=== PATIENT | female | born 1995 | race Caucasian/White ===

== ENCOUNTER 2020-01-30 09:46 | Emergency (ER) | payer OTHER, SELFPAY ==
--- NOTE | ~2020-01-30 | XR_ITS ---
EXAMINATION: XR forearm RT 2V DATE: 01/30/2020 10:40 INDICATION: Right forearm injury and pain. TECHNIQUE: 2 views of right forearm were obtained. COMPARISON: None. FINDINGS: Bone alignment is normal. No fracture. Joint spaces are well maintained. There is no elbow joint effusion. IMPRESSION: 1. Normal right forearm. Reviewed, dictated and finalized at location A. E PROTECTION SPECIALIST IMPRESSION: 1. Normal right forearm.
--- NOTE | ~2020-01-30 | XR_ITS ---
EXAMINATION: XR elbow RT min 3V DATE: 01/30/2020 10:40 INDICATION: Right elbow pain. Fall. TECHNIQUE: 4 views of right elbow were obtained. COMPARISON: None. FINDINGS: Bone alignment is normal. No fracture. Joint spaces are well maintained. There is no elbow joint effusion. IMPRESSION: 1. Normal right elbow. Reviewed, dictated and finalized at location A. ERY CARRIER IMPRESSION: 1. Normal right elbow.
--- NOTE | ~2020-01-30 | XR_ITS ---
EXAMINATION: XR shoulder RT min 2V DATE: 01/30/2020 10:40 INDICATION: Right shoulder pain. Fall. TECHNIQUE: 4 views of right shoulder were obtained. COMPARISON: None. FINDINGS: Bone alignment is normal. No fracture. Joint spaces are well maintained. A calcified right lung nodule is consistent with old granulomatous disease. IMPRESSION: 1. Normal right shoulder. Reviewed, dictated and finalized at location A. THERAPIST IMPRESSION: 1. Normal right shoulder.
[2020-01-30 09:55] VITALS: BP 113/74; PULSE 70; RESP 16; TEMP 36.3; O2SAT 100
--- NOTE | 2020-01-30 11:11 | ED.UPPEXIN ---
HPI - Extremity Injury (Upper) General Chief Complaint: Extremity Injury, Upper Stated Complaint: right arm injury Time Seen by Provider: 01/30/20 09:52 Source: patient Mode of arrival: ambulatory Limitations: no limitations History of Present Illness HPI narrative: Patient presents with chief complaint of pain to her right shoulder right elbow and right forearm that began after slipping on some water last night and landing on the forearm. Patient states she iced the area but today noticed that it is more so painful and swollen. Patient states that she does still have range of motion of the extremity but it is uncomfortable. Patient denies prior fractures she does report radiating pain from her forearm to her elbow and from her shoulder downward as well as intermittent tingling sensations. Patient denies any other injuries or concerns. Related Data Home Medications Medication Instructions Recorded Confirmed No Home Medications 01/30/20 01/30/20 Allergies Allergy/AdvReac Type Severity Reaction Status Date / Time Sulfa (Sulfonamide Allergy Mild Unknown Verified 01/30/20 10:15 Antibiotics) amoxicillin Allergy Unknown Unknown Verified 01/30/20 10:15 chlorphentermine Allergy Unknown Unknown Verified 01/30/20 10:15 dextromethorphan Allergy Unknown Unknown Verified 01/30/20 10:15 Penicillins Allergy Unknown RASH Verified 04/11/18 13:37 phenylephrine Allergy Unknown Unknown Verified 01/30/20 10:15 pseudoephedrine Allergy Unknown Unknown Verified 01/30/20 10:15 DIAL SOAP Allergy Mild RASH Uncoded 09/07/16 12:36 PUREX Allergy Mild RASH Uncoded 09/07/16 12:36 Review of Systems Review of Systems: Narrative: CONSTITUTIONAL: Denies fever, chills, or sweats. EYES: Denies visual changes, redness, or discharge. ENT: Denies rhinorrhea, congestion, sore throat, or otalgia. CARDIOVASCULAR: Denies chest pain, palpitations, or edema. RESPIRATORY: Denies cough or dyspnea. GASTROINTESTINAL: Denies abdominal pain, nausea, vomiting, or diarrhea. GENITOURINARY: Denies dysuria or hematuria. SKIN: Denies rash or itching. MUSCULOSKELETAL: Reports right arm injury NEUROLOGIC: Denies headache, numbness, dizziness, or weakness. PSYCHIATRIC: Denies anxiety or depression. [facility] Family History Family History (Updated 10/28/09 @ 12:10 by DOCTOR UNKNOWN) Other Diabetes mellitus Family history of coronary artery disease Hypertension Social History Social History Smoking status: Never smoker Alcohol intake: never Exam Narrative: Exam Narrative: GENERAL: Well-appearing, well-nourished, and in no acute distress. HEAD: Normocephalic, atraumatic. EYES: PERRLA and EOMI. NECK: Supple. No adenopathy or masses. Range of motion intact no pain CHEST: No respiratory distress. No tachypnea EXTREMITIES: Normal range of motion to right extremity. Tenderness to posterior aspect of right shoulder.no outward sign of deformity or ecchymosis appreciated. Slight tenderness with palpation distal to the elbow into the forearm with ecchymosis and swelling. No tenderness to palpation of right wrist or hand. SKIN: Warm, dry, no rash. NEURO: No focal deficits. Alert and oriented x3. PSYCH: Normal mood and affect. Course Vital Signs Vital signs: Vital Signs Temperature 97.4 F L 01/30/20 09:55 Pulse Rate 70 01/30/20 09:55 Respiratory Rate 16 01/30/20 09:55 Blood Pressure 113/74 01/30/20 09:55 Pulse Oximetry 100 01/30/20 09:55 Temperature 97.4 F L 01/30/20 09:55 Pulse Rate 70 01/30/20 09:55 Respiratory Rate 16 01/30/20 09:55 Blood Pressure 113/74 01/30/20 09:55 Pulse Oximetry 100 01/30/20 09:55 MDM - Extremity Injury (Upper) MDM Narrative Medical decision making narrative: Patient's x-rays are negative. Patient instructed to RICE and follow-up with primary care if symptoms persist. Patient instructed to take Tylenol and ibuprofen if she can tolerate them. Patient given a work note to avoid using right a
[2020-01-30 11:26] VITALS: RESP 16
== END 2020-01-30 11:27 | disposition home or self-care (01) ==
PROVIDERS: Emergency Provider Emergency Medicine; PCP Family Medicine
DX: S43.401A Unspecified sprain of right shoulder joint, initial encounter (principal); S50.11XA Contusion of right forearm, initial encounter; W01.0XXA Fall on same level from slipping, tripping and stumbling without subsequent striking against object, initial encounter
CPT/HCPCS: 73030; 73080; 73090; 99284; A4565

== ENCOUNTER 2022-04-24 15:30 | Outpatient (CLI) | payer OTHER, SELFPAY ==
--- NOTE | ~2022-04-24 | US_ITS ---
EXAMINATION: US OB <=14 wk fetus w TV DATE: 04/24/2022 16:01 INDICATION: Irregular periods with uncertain dating of during first trimester. TECHNIQUE: Real-time pelvic ultrasound utilizing both a transvaginal and transabdominal probe was pe rformed. The interpreting radiologist was not present for the study. COMPARISON: None. FINDINGS: The uterus measures 10.1 x 5.2 x 4.1 cm. There is a 4 mm anechoic fluid collection within the endome trial complex at the uterine fundus without evident yolk sac, pole or definitive double decidua sign which remains equivocal for gestational sac versus pseudogestational sac. Presuming a gestation al sac, this would correlate with an estimated gestational age of 5 weeks and 1 days. The right ovary measures 4.9 x 3.3 x 2.8 cm. 2.8 cm anechoic cyst in the right ovary. The left ovary measures 3.2 x 2.6 x 2.0 cm. Vascular flow with arterial flow on color Doppler identified at both ova michele. No other abnormal adnexal masses. There is a minimal amount of anechoic likely physiologic free fluid in the pelvis. IMPRESSION: 1. 4 mm anechoic fluid collection without evident yolk sac or pole located in the endometrial c omplex at the uterine fundus which remains indeterminate for gestational sac versus pseudogestationa l sac. Differential would include early, failed or ectopic . Correlate with serial beta-hCG levels and could consider short interval repeat pelvic ultrasound. 2. Presuming a gestational sac, the estimated gestational age by ultrasound based upon mean sac diame ter would be 5 weeks 1 day(s) +/- 3 day(s) with ultrasound estimated date of delivery (DB) of 2022. Reviewed, dictated and finalized at location A. TAL PERFORMANCE ANALYST IMPRESSION: 1. 4 mm anechoic fluid collection without evident yolk sac or pole locate d in the endometrial complex at the uterine fundus which remains indeterminate for gestational sac versus pseudogestational sac. Differential would include e kailyn, failed or ectopic . Correlate with serial beta-hCG levels and co uld consider short interval repeat pelvic ultrasound. 2. Presuming a gestational sac, the estimated gestational age by ultrasound bas ed upon mean sac diameter would be 5 weeks 1 day(s) +/- 3 day(s) with ultrasoun d estimated date of delivery (DB) of 12/24/2022.
== END 2022-04-24 15:31 | disposition home or self-care (01) ==
PROVIDERS: PCP Family Medicine; Visit Provider Obstetrics & Gynecology Gynecology
DX: O36.80X0 Pregnancy with inconclusive fetal viability, not applicable or unspecified (principal); Z3A.00 Weeks of gestation of pregnancy not specified
CPT/HCPCS: 76801; 76817

== ENCOUNTER 2022-04-27 15:45 | Outpatient (CLI) | payer OTHER, SELFPAY | END 2022-04-27 15:46 | disposition home or self-care (01) | LOC: ANHLAB 15:45 | PROVIDERS: PCP Family Medicine; Visit Provider Obstetrics & Gynecology Gynecology | DX: O28.3 Abnormal ultrasonic finding on antenatal screening of mother (principal); Z3A.00 Weeks of gestation of pregnancy not specified | CPT/HCPCS: 36415; 84702 ==

== ENCOUNTER 2022-04-29 15:37 | Outpatient (CLI) | payer OTHER, SELFPAY | END 2022-04-29 15:38 | disposition home or self-care (01) | PROVIDERS: PCP Family Medicine; Visit Provider Obstetrics & Gynecology Gynecology | DX: O28.3 Abnormal ultrasonic finding on antenatal screening of mother (principal); Z3A.00 Weeks of gestation of pregnancy not specified | CPT/HCPCS: 36415; 84702 ==

== ENCOUNTER 2022-05-04 17:05 | Outpatient (CLI) | payer OTHER, SELFPAY ==
--- NOTE | ~2022-05-04 | US_ITS ---
EXAMINATION: US OB <=14 wk fetus w TV DATE: 05/04/2022 18:09 INDICATION: Uncertain dates. TECHNIQUE: Real-time transabdominal and transvaginal pelvic ultrasound was performed. COMPARISON: Ultrasound 04/24/2022 FINDINGS: TRANSABDOMINAL ULTRASOUND: The uterus measures 10.3 x 5.4 x 5.7 cm. TRANSVAGINAL ULTRASOUND: There is an intrauterine gestational sac. A yolk sac is identified. The fet al crown rump length measures 0.4 cm, which correlates with an estimated gestational age of 6 weeks a nd 1 day(s) (+/-) 4 day(s). heart motion is identified measuring 154 beats per minute (bpm) by M-mode Doppler. There is a small subchorionic hematoma. The right ovary measures 5.3 x 2.4 x 3.5 cm. The left ovary measures 4.0 x 2.2 x 3.2 cm. There is no free fluid in the pelvis. IMPRESSION: 1. Single living intrauterine gestation with estimated date of delivery of 12/27/2022. 2. Small subchorionic hematoma. Reviewed, dictated and finalized at location A. INUOUS WAVE OPERATOR IMPRESSION: 1. Single living intrauterine gestation with estimated date of delivery of . 2. Small subchorionic hematoma.
== END 2022-05-04 17:06 | disposition home or self-care (01) ==
LOC: ANHIMG 17:07
PROVIDERS: PCP Family Medicine; Visit Provider Obstetrics & Gynecology Gynecology
DX: Z36.87 Encounter for antenatal screening for uncertain dates (principal)
CPT/HCPCS: 76801; 76817

== ENCOUNTER 2022-06-01 12:41 | Outpatient (CLI) | payer OTHER, SELFPAY ==
--- NOTE | ~2022-06-01 | US_ITS ---
Pelvic ultrasound. Clinical History: First trimester , subchorionic hemorrhage COMPARISON: 05/04/2022 Technique: Realtime transabdominal and transvaginal scanning of the pelvis was performed. Color flow Doppler and Doppler spectral analysis were performed. Findings: The uterus is anteverted, and contains an intrauterine gestation. Aristes-rump length of 4.2 cm corresponds to an estimated gestational age of 11 weeks 1 day. heart rate is 163 bpm. Small subchorionic hemorrhage measures 1.3 x 1.8 x 0.5 cm. The right ovary measures 4.9 x 2.3 cm. No significant right ovarian or adnexal mass is seen. The left ovary measures 3.4 x 2.2 x 2.8 cm. No significant left ovarian or adnexal mass is seen. There is no evidence of free fluid in the cul de sac. Impression: Live intrauterine gestation with estimated gestational age of 11 weeks 1 day. heart rate is 163 bpm. Small subchorionic hemorrhage, as detailed above. Reviewed, dictated and finalized at location . Impression: Live intrauterine gestation with estimated gestational age of 11 weeks 1 day. F etal heart rate is 163 bpm. Small subchorionic hemorrhage, as detailed above.
== END 2022-06-01 12:42 | disposition home or self-care (01) ==
PROVIDERS: PCP Family Medicine; Visit Provider Obstetrics & Gynecology Gynecology
DX: O36.8910 Maternal care for other specified fetal problems, first trimester, not applicable or unspecified (principal); Z3A.11 11 weeks gestation of pregnancy
CPT/HCPCS: 76801

== ENCOUNTER 2022-06-16 13:27 | Outpatient (CLI) | payer OTHER, SELFPAY ==
[2022-06-16 14:05] LABS: Basophils Percent Auto 0.3 % (0.2-1.2); Eosinophils Absolute Auto 0.5 K/mm3 (0-0.3); Eosinophils Percent Auto 5.2 % (0-4.4); Hemoglobin 13.7 g/dL (12.0-15.0); Immature Granulocyte Absolute 0.04 K/mm3 (0.00-0.031); Immature Granulocyte Percent A 0.4 % (0-0.5); Lymphocytes Absolute Auto 2.27 K/mm3 (0.9-3.2); Lymphocytes Percent Auto 21.7 % (18.3-44.2); Mean Corpuscular HGB Conc 33.4 g/dl (32-36); Mean Corpuscular Hemoglobin 29.7 pg (26-34); Mean Corpuscular Volume 88.7 fl (80-100); Monocytes Absolute Auto 0.5 K/mm3 (0.1-0.6); Monocytes Percent Auto 4.8 % (2.6-8.5); Neutrophils Absolute Auto 7.1 K/mm3 (1.3-6.7); Neutrophils Percent Auto 67.6 % (45.5-73.1); Platelet Count Result 245 k/mm3 (150-375); Red Blood Count 4.62 M/mm3 (4.2-5.4); Red Cell Distribution Width 13.4 % (11.5-14.5); White Blood Count 10.5 K/mm3 (4.5-10.0)
[2022-06-16 14:44] LABS: Hemoglobin A1C 4.8 % (<5.7)
[2022-06-16 15:04] LABS: HIV 1/2 Ab P24 Ag Result Negative (Negative)
[2022-06-16 15:23] LABS: Vitamin D 25 Hydroxy 36.2 ng/mL
[2022-06-16 15:55] LABS: Hepatitis C Virus Antibody Negative (Negative)
[2022-06-16 16:01] LABS: Hepatitis B Surface Antigen Negative (Negative); Rubella IgG Antibody 55.6 IU/ML
[2022-06-17 08:14] LABS: Rapid Plasma Reagin Non-Reactive (NonReactive)
== END 2022-06-16 13:28 | disposition home or self-care (01) ==
PROVIDERS: Advanced Practice Midwife; PCP Family Medicine; Visit Provider Obstetrics & Gynecology Gynecology
DX: Z36.9 Encounter for antenatal screening, unspecified (principal); Z3A.00 Weeks of gestation of pregnancy not specified
CPT/HCPCS: 36415; 82306; 82728; 83036; 85025; 86592; 86703; 86762; 86803; 86850; 86900; 86901; 87340; G0432

== ENCOUNTER 2022-06-29 10:03 | Outpatient (CLI) | payer OTHER, SELFPAY ==
--- NOTE | ~2022-06-29 | US_ITS ---
EXAMINATION: US OB follow up DATE: 06/29/2022 10:41 INDICATION: Subchorionic hematoma follow-up TECHNIQUE: Real-time transabdominal obstetric ultrasound. FINDINGS: Ultrasound dated 06/01/2022 There is a single living fetus in variable presentation. The placenta is anterior without placenta p revia. cardiac activity and movement is noted with a heart rate of 146 beats per minute. T he amniotic fluid volume is subjectively normal. There is a persistent subchorionic hematoma measurin g 2.1 x 0.4 x 0.9 cm The following biometric data were obtained: BPD: 28mm corresponds to gestational age 14 weeks 6 days. Head circumference: 109mm corresponds to gestational age 15 weeks 1 days. Abdominal circumference: 99mm corresponds to gestational age 16 weeks 0 days. Femur length: 70mm corresponds to gestational age 15 weeks 1 days. Estimated weight: 126grams +/- 19grams, 92.9%.] IMPRESSION: 1. Single living intrauterine in variable presentation with an estimated gestational age o f 14 weeks 6 days by inititial ultrasound. EDC by initial ultrasound is 12/22/2022. Appropriate inter malick growth. 2. Normal placenta. 3: Persistent subchorionic hematoma measuring 2.1 x 0.4 x 0.9 cm. Reviewed, dictated and finalized at location A. IMPRESSION: 1. Single living intrauterine in variable presentation with an estim ated gestational age of 14 weeks 6 days by inititial ultrasound. EDC by initial ultrasound is 12/22/2022. Appropriate interval growth. 2. Normal placenta. 3: Persistent subchorionic hematoma measuring 2.1 x 0.4 x 0.9 cm.
== END 2022-06-29 10:04 | disposition home or self-care (01) ==
PROVIDERS: PCP Family Medicine; Visit Provider Obstetrics & Gynecology Gynecology
DX: O36.8910 Maternal care for other specified fetal problems, first trimester, not applicable or unspecified (principal); Z3A.14 14 weeks gestation of pregnancy
CPT/HCPCS: 76816

== ENCOUNTER 2022-07-31 09:31 | Outpatient (CLI) | payer OTHER, SELFPAY ==
--- NOTE | ~2022-07-31 | US_ITS ---
EXAMINATION: US OB /maternal detail DATE: 07/31/2022 10:46 INDICATION: survey TECHNIQUE: Multiple obstetric sonographic images performed. FINDINGS: Comparison to multiple prior studies sequentially, with oldest reviewed study dated 023. There is a single living fetus in breech presentation. There is a hypoechoic structure along the aurelio in of the placenta measuring 3.2 x 1.6 x 0.9 cm, consistent with small subchorionic hemorrhage. The p lacenta is anterior without placenta previa. Placental margin to the cervix 6.4 cm. Cervical length i s 5.2 cm. Amniotic fluid volume is subjectively normal. cardiac activity and movement is noted with a heart rate of 143 beats per minute. The following anatomy was identified as normal: 4 chamber heart 3 vessel cord cord insertion kidneys urinary bladder stomach spine diaphragm ventricles cisterna magna cerebellum The following biometric data were obtained: BPD: 40mm corresponds to gestational age 18 weeks 1 days. Head circumference: 157 mm corresponds to gestational age 18 weeks 4 days. Abdominal circumference: 143 mm corresponds to gestational age 19 weeks 5 days. Femur length: 30 mm corresponds to gestational age 19 weeks 1 days. Head circumference to abdominal circumference ratio: 1.1 (normal range for expected gestational age i s 1.09-1.26). Estimated weight: 284 grams +/- 43 grams using Hadlock method 53.7%. IMPRESSION: 1: Single living intrauterine with an estimated gestational age of 18weeks 5days by initial ultrasound measurements, with an EDC of 12/27/2022 in breech presentation. 2. Normal survey. 3: Small subchorionic hemorrhage measuring 3.2 x 1.6 x 0.9 cm. Reviewed, dictated and finalized at location B. IMPRESSION: 1: Single living intrauterine with an estimated gestational age of 18 weeks 5days by initial ultrasound measurements, with an EDC of 12/27/2022 in br eech presentation. 2. Normal survey. 3: Small subchorionic hemorrhage measuring 3.2 x 1.6 x 0.9 cm.
== END 2022-07-31 09:32 | disposition home or self-care (01) ==
PROVIDERS: PCP Family Medicine; Visit Provider Obstetrics & Gynecology Gynecology
DX: O36.8910 Maternal care for other specified fetal problems, first trimester, not applicable or unspecified (principal); Z3A.18 18 weeks gestation of pregnancy
CPT/HCPCS: 76805

== ENCOUNTER 2022-08-27 16:20 | Outpatient (CLI) | payer OTHER, SELFPAY ==
--- NOTE | ~2022-08-27 | US_ITS ---
EXAMINATION: US OB follow up DATE: 08/27/2022 16:57 INDICATION: Subchorionic hematoma follow-up during second trimester TECHNIQUE: Real-time ultrasound of the pelvis was performed. The interpreting radiologist was not pre sent for the study. COMPARISON: 07/31/2022 FINDINGS: There is a single living fetus in breech presentation. The previously described subchorioni c hematoma is no longer identified. The placenta is anterior. cardiac activity and moveme nt are noted. heart rate is 142 beats per minute (bpm). The amniotic fluid index is subjectivel y normal. The following biometric data were obtained: Biparietal diameter (BPD): 5.3 cm; head circumference (HC): 20.2 cm; abdominal circumference (AC): 18 .9 cm; femur length (FL): 3.9 cm. These measurements are concordant. Estimated weight is 563 g +/- 84 g, which correlates with the 48th percentile when 12/24/2022 i s used as estimated date of delivery. As single measurements, these parameters are each equal to the following estimated gestational ages w ith ranges of +/- 2 standard deviations: BPD: 22 weeks 1 days +/- 1 weeks 5 days. HC: 22 weeks 3 days +/- 1 weeks 3 days. AC: 23 weeks 5 days +/- 2 weeks 0 days. FL: 22 weeks 5 days +/- 1 weeks 6 days. estimated gestational age based solely on measurements from this exam is 22 weeks 5 days +/- 1 weeks 4 days. IMPRESSION: 1. Single living fetus in breech presentation. 2. Estimated weight is 563 g +/- 84 g, which correlates with the 48th percentile when 3 is used as estimated date of delivery. 3. Resolved subchorionic hematoma. Reviewed, dictated and finalized at location A. IMPRESSION: 1. Single living fetus in breech presentation. 2. Estimated weight is 563 g +/- 84 g, which correlates with the 48th per centile when 12/24/2022 is used as estimated date of delivery. 3. Resolved subchorionic hematoma.
== END 2022-08-27 16:21 | disposition home or self-care (01) ==
LOC: ANHIMG 16:21
PROVIDERS: PCP Family Medicine; Visit Provider Obstetrics & Gynecology Gynecology
DX: O36.8920 Maternal care for other specified fetal problems, second trimester, not applicable or unspecified (principal); Z3A.22 22 weeks gestation of pregnancy
CPT/HCPCS: 76816

== ENCOUNTER 2022-09-24 09:51 | Outpatient (CLI) | payer OTHER, SELFPAY ==
[2022-09-25 11:11] LABS: Creatinine Urine 74.8 mg/dL
[2022-09-25 11:27] LABS: Creatinine 24 Hour Urine 1.5 gm/24 (0.8-1.8); Total Volume 24 Hour Urine 2100 ml
[2022-09-25 13:00] LABS: Total Protein Urine Random < 5 mg/dL
[2022-09-25 13:57] LABS: Total Protein Urine 24 Hr 105 mg/24hr (28-141); Total Volume 24 Hour Urine 2100 ml
== END 2022-09-24 09:52 | disposition home or self-care (01) ==
LOC: ANHLAB 10-06 13:28
PROVIDERS: PCP Family Medicine; Visit Provider Obstetrics & Gynecology Gynecology
DX: O14.90 Unspecified pre-eclampsia, unspecified trimester (principal); Z3A.00 Weeks of gestation of pregnancy not specified
CPT/HCPCS: 81050; 82570; 84156

== ENCOUNTER 2022-10-05 12:41 | Emergency (ER) | payer OTHER, SELFPAY ==
[2022-10-05 13:05] VITALS: BP 117/65; PULSE 93; RESP 18; TEMP 36.5; O2SAT 99
--- NOTE | 2022-10-05 13:12 | ECG_ITS ---
Measurements Intervals [place] Rate: 94 P: 56 NC: 122 QRS: 40 QRSD: 90 T: -25 QT: 330 QTc: 413 Interpretive Statements SINUS RHYTHM ST-T WAVE ABNORMALITY IN INFERIOR LEADS- CONSIDER ISCHEMIA ABNORMAL ECG NO PREVIOUS ECG AVAILABLE FOR COMPARISON Electronically Signed On 10-05-2022 13:29:46 CDT by Juan A Cabrera D.O.
[2022-10-05 13:37] VITALS: BP 110/73; PULSE 86; RESP 20; O2SAT 99
[2022-10-05 13:40] VITALS: PULSE 89; O2SAT 98
[2022-10-05 14:01] LABS: Influenza A QL RT-PCR Negative (Negative); Influenza B QL RT-PCR Negative (Negative); RSV RNA, RT-PCR Negative (Negative); SARS-CoV-2 RNA PCR Negative (Negative)
--- NOTE | 2022-10-05 14:33 | ED.URI ---
HPI - URI/Sore Throat General Chief Complaint: Upper Respiratory Infection Stated Complaint: 29 wks preg/congestion/philippe Time Seen by Provider: 10/05/22 14:27 History of Present Illness HPI Narrative: 27-year-old female patient presents to the emergency room today for complaints of cough and chest congestion that started on Wednesday. She had fever Wednesday and yesterday but none today. Denies having any shortness of breath, no wheezing. She is currently . No vomiting or diarrhea. Denies having any chest pain or shortness of breath. No wheezing. Related Data Allergies Allergy/AdvReac Type Severity Reaction Status Date / Time Sulfa (Sulfonamide Allergy Mild Unknown Verified 10/05/22 13:43 Antibiotics) amoxicillin Allergy Unknown Unknown Verified 10/05/22 13:43 chlorphentermine Allergy Unknown Unknown Verified 10/05/22 13:43 dextromethorphan Allergy Unknown Unknown Verified 10/05/22 13:43 Penicillins Allergy Unknown RASH Verified 10/05/22 13:43 phenylephrine Allergy Unknown Unknown Verified 10/05/22 13:43 pseudoephedrine Allergy Unknown Unknown Verified 10/05/22 13:43 DIAL SOAP Allergy Mild RASH Uncoded 10/05/22 13:43 PUREX Allergy Mild RASH Uncoded 10/05/22 13:43 Review of Systems Review of Systems: CONSTITUTIONAL: fever, improved today EYES: Denies visual changes, redness, or discharge. ENT: sinus congestion and drainage CARDIOVASCULAR: Denies chest pain, palpitations, or edema. RESPIRATORY: Reports cough and chest congestion, no SOB or wheezing GASTROINTESTINAL: Denies abdominal pain, nausea, vomiting, or diarrhea. GENITOURINARY: Denies dysuria or hematuria. SKIN: Denies rash or itching. MUSCULOSKELETAL: Denies back pain, joint pain, or myalgia. NEUROLOGIC: Denies headache, numbness, dizziness, or weakness. PSYCHIATRIC: Denies anxiety or depression. [facility] Past Medical History Medical History Muscle strain of right upper arm Family History Family History Other Diabetes mellitus Family history of coronary artery disease Hypertension Social History Social History Smoking status: Never smoker Alcohol intake: never Living arrangements: with family Occupation/Education: occupation Gender identity (if verbalized by the patient): Female Course Vital Signs Vital signs: Vital Signs Temperature 36.5 C 10/05/22 13:05 Pulse Rate 93 10/05/22 13:05 Respiratory Rate 18 10/05/22 13:05 Blood Pressure 117/65 10/05/22 13:05 Pulse Oximetry 99 10/05/22 13:05 Temperature 36.5 C 10/05/22 13:05 Pulse Rate 87 10/05/22 14:36 Respiratory Rate 20 10/05/22 14:36 Blood Pressure 105/66 10/05/22 14:36 Pulse Oximetry 96 10/05/22 14:36 Oxygen Delivery Room Air 10/05/22 13:40 MDM - URI/Sore Throat Lab Data Attestation: I reviewed the patient's lab results. Labs: Lab Results 10/05/22 Range/Units 13:21 Influenza A (RT-PCR) Negative (Negative) Influenza B (RT-PCR) Negative (Negative) RSV (RT-PCR) Negative (Negative) SARS-CoV-2 RNA (RT-PCR) Negative (Negative) Discharge Plan Discharge Clinical Impression: Acute bronchitis Qualifiers: Bronchitis organism: unspecified organism Qualified Code(s): J20.9 - Acute bronchitis, unspecified Patient Disposition: Home, Self-Care Condition: Stable Instructions: Antibiotic Form, Acute Bronchitis (ED) Additional Instructions: Z pack as directed. Take robitussin DM as needed for cough. Drink plenty of oral fluids. Follow up with your OB provider on as planned. Prescriptions: New azithromycin [Zithromax] 250 mg tablet See Rx Instructions .ROUTE .COMPLEX Qty: 6 0RF Rx Instructions: For 250 mg dose pack: take 500 mg today (day 1), then 250 mg for 4 days (days 2-5) Follow-up/Referr
[2022-10-05 14:36] VITALS: BP 105/66; PULSE 87; RESP 20; O2SAT 96
== END 2022-10-05 14:44 | disposition home or self-care (01) ==
PROVIDERS: Emergency Medicine; Emergency Provider Nurse Practitioner Family; PCP Family Medicine
DX: O99.513 Diseases of the respiratory system complicating pregnancy, third trimester (principal); J20.9 Acute bronchitis, unspecified; Z20.822 Contact with and (suspected) exposure to COVID-19; Z3A.29 29 weeks gestation of pregnancy; R94.31 Abnormal electrocardiogram [ECG] [EKG]
CPT/HCPCS: 87637; 93005; 99283

== ENCOUNTER 2022-10-18 16:05 | Outpatient (RCR) | payer OTHER, SELFPAY ==
[2022-10-08 14:20] LABS: Hematocrit 36.5 % (37.0-47.0); Hemoglobin 12.4 g/dL (12.0-15.0)
[2022-10-08 14:28] LABS: Glucose 1 Hour PP 50gm Dose 106 mg/dL
[2022-10-08 15:10] LABS: HIV 1/2 Ab P24 Ag Result Negative (Negative)
[2022-10-08 16:11] LABS: Vitamin D 25 Hydroxy 30.4 ng/mL
[2022-10-18] MEDS: RHO(D) IMMUNE GLOBULIN 300 MCG/2 ML SYRINGE IM (16:25)
== END 2023-01-06 23:59 | disposition home or self-care (01) ==
LOC: ANHLAB 16:05
PROVIDERS: PCP Family Medicine; Visit Provider Advanced Practice Midwife
DX: Z11.4 Encounter for screening for human immunodeficiency virus [HIV] (principal); Z29.13 Encounter for prophylactic Rho(D) immune globulin; O36.0190 Maternal care for anti-D [Rh] antibodies, unspecified trimester, not applicable or unspecified; Z3A.00 Weeks of gestation of pregnancy not specified
CPT/HCPCS: 36415; 82306; 82947; 85014; 85018; 85461; 86703; 86850; 86900; 86901; 90384; 96372; G0432; J2790

== ENCOUNTER 2022-11-17 17:12 | Outpatient (CLI) | payer OTHER, SELFPAY ==
[2022-11-17 17:31] VITALS: BP 111/68; PULSE 68
[2022-11-17 17:46] VITALS: BP 112/64; PULSE 68
[2022-11-17 17:49] LABS: Basophils Percent Auto 0.3 % (0.2-1.2); Eosinophils Absolute Auto 0.2 K/mm3 (0-0.3); Eosinophils Percent Auto 1.9 % (0-4.4); Hematocrit 35.5 % (37.0-47.0); Hemoglobin 11.9 g/dL (12.0-15.0); Immature Granulocyte Absolute 0.03 K/mm3 (0.00-0.031); Immature Granulocyte Percent A 0.3 % (0-0.5); Lymphocytes Absolute Auto 1.84 K/mm3 (0.9-3.2); Lymphocytes Percent Auto 19.6 % (18.3-44.2); Mean Corpuscular HGB Conc 33.5 g/dl (32-36); Mean Corpuscular Hemoglobin 29.3 pg (26-34); Mean Corpuscular Volume 87.4 fl (80-100); Mean Platelet Volume 10.5 fl (7.4-10.4); Monocytes Absolute Auto 0.6 K/mm3 (0.1-0.6); Neutrophils Absolute Auto 6.7 K/mm3 (1.3-6.7); Neutrophils Percent Auto 71.9 % (45.5-73.1); Platelet Count Result 160 k/mm3 (150-375); Red Blood Count 4.06 M/mm3 (4.2-5.4); Red Cell Distribution Width 12.4 % (11.5-14.5); White Blood Count 9.4 K/mm3 (4.5-10.0)
[2022-11-17 18:01] VITALS: BP 109/59; PULSE 71
[2022-11-17 18:01] LABS: Alanine Aminotransferase 95 U/L (6-35); Albumin Level 3.8 g/dL (3.5-5.1); Alkaline Phosphatase 165 U/L (38-126); Anion Gap 7 mmol/L (8-16); Aspartate Amino Transferase 66 U/L (14-36); Bilirubin,Total 0.8 mg/dL (0.2-1.3); Blood Urea Nitrogen 10 mg/dL (7-17); Calcium 8.7 mg/dL (8.4-10.2); Carbon Dioxide 19 mmol/L (22-30); Chloride 108 mmol/L (98-107); Estimated Glomerular Filt Rate > 60; Glucose 78 mg/dL (65-110); Potassium 3.8 mmol/L (3.4-5.0); Sodium 134 mmol/L (137-145); Uric Acid 5.3 mg/dL (2.5-7.5)
[2022-11-17 18:37] LABS: Appearance Urine Clear (Clear); Bacteria Urine Rare /hpf; Bilirubin Urine Negative (Negative); Blood Urine Negative (Negative); Color Urine Yellow (Yellow); Glucose Urine UA Negative (Negative); Ketones Urine Negative (Negative); Leukocyte Esterase Ur 3+ LEU/UL (NEGATIVE); Nitrate Urine Negative (Negative); Non Pathogenic Casts 0-2; Protein Urine Negative (Negative); RBC Urine 0-2 /hpf (0-2); Specific Grav Ur 1.014 (1.001-1.035); Squamous Epithelial Cell Urine Occasional /hpf (Few)
[2022-11-17 18:42] LABS: Add Urine Microscopic? YES
[2022-11-17 19:23] LABS: Creatinine Urine 71.5 mg/dL
[2022-11-17 19:30] LABS: Total Protein Urine Random < 5 mg/dL; Ur Ttl Prot Creatinine Ratio < 0.07 mg/mg (0-0.20)
[2022-11-17] MEDS: BETAMETHASONE SOD PHOS/ACETATE 30 MG/5 ML VIAL 12 MG IM (19:51)
[2022-11-24 19:02] LABS: Chenodeoxycholic Acid 14.5 umol/L (< OR = 3.9); Cholic Acid 45.7 umol/L (< OR = 2.8); Deoxycholic Acid 7.5 umol/L (< OR = 2.3); Total Bile Acids 67.8 umol/L (< OR = 8.3)
== END 2022-11-17 20:05 | disposition home or self-care (01) ==
LOC: ANHOBOP 17:18 → ANHLDR 17:20
PROVIDERS: PCP Family Medicine; Visit Provider Obstetrics & Gynecology Gynecology
DX: O13.9 Gestational [pregnancy-induced] hypertension without significant proteinuria, unspecified trimester (principal); Z3A.00 Weeks of gestation of pregnancy not specified
CPT/HCPCS: 36415; 80053; 81001; 82542; 82570; 84156; 84550; 85025; 87086; 87088; 96372; 99199; J0702

== ENCOUNTER 2022-11-18 19:55 | Outpatient (CLI) | payer OTHER, SELFPAY ==
[2022-11-18 20:23] VITALS: BP 112/70; PULSE 80
[2022-11-18 20:30] VITALS: BP 105/62; PULSE 95
[2022-11-18 20:45] VITALS: BP 111/67; PULSE 93
[2022-11-18 21:00] VITALS: BP 108/61; PULSE 80
[2022-11-18] MEDS: BETAMETHASONE SOD PHOS/ACETATE 30 MG/5 ML VIAL 12 MG IM (21:11)
[2022-11-18 21:22] LABS: Basophils Percent Auto 0.3 % (0.2-1.2); Eosinophils Absolute Auto 0.1 K/mm3 (0-0.3); Eosinophils Percent Auto 1.1 % (0-4.4); Hematocrit 33.6 % (37.0-47.0); Hemoglobin 11.3 g/dL (12.0-15.0); Immature Granulocyte Percent A 0.8 % (0-0.5); Lymphocytes Absolute Auto 2.06 K/mm3 (0.9-3.2); Lymphocytes Percent Auto 17.3 % (18.3-44.2); Mean Corpuscular HGB Conc 33.6 g/dl (32-36); Mean Corpuscular Hemoglobin 29.4 pg (26-34); Mean Corpuscular Volume 87.3 fl (80-100); Mean Platelet Volume 10.3 fl (7.4-10.4); Monocytes Absolute Auto 0.7 K/mm3 (0.1-0.6); Monocytes Percent Auto 6.1 % (2.6-8.5); Neutrophils Absolute Auto 8.8 K/mm3 (1.3-6.7); Neutrophils Percent Auto 74.4 % (45.5-73.1); Platelet Count Result 155 k/mm3 (150-375); Red Blood Count 3.85 M/mm3 (4.2-5.4); Red Cell Distribution Width 12.8 % (11.5-14.5); White Blood Count 11.9 K/mm3 (4.5-10.0)
[2022-11-18 21:33] LABS: Alanine Aminotransferase 124 U/L (6-35); Albumin Level 3.5 g/dL (3.5-5.1); Alkaline Phosphatase 145 U/L (38-126); Anion Gap 11 mmol/L (8-16); Aspartate Amino Transferase 97 U/L (14-36); Bilirubin,Total 0.6 mg/dL (0.2-1.3); Blood Urea Nitrogen 12 mg/dL (7-17); Carbon Dioxide 17 mmol/L (22-30); Chloride 108 mmol/L (98-107); Estimated Glomerular Filt Rate > 60; Glucose 109 mg/dL (65-110); Potassium 3.6 mmol/L (3.4-5.0); Sodium 136 mmol/L (137-145); Uric Acid 5.1 mg/dL (2.5-7.5)
--- NOTE | 2022-11-18 21:54 | PC.NURSE ---
Called Sarai Lynn CNM with lab results and BPs. Plan of care discussed with Dr. Saleh. Informed of variable deceleration noted on tracing, but reactive since. Send home with 24hr urine and follow up on Wednesday in the office.
== END 2022-11-18 22:05 ==
LOC: ANHLDR 20:32 → ANHOBOP 11-19 00:05
PROVIDERS: Advanced Practice Midwife; PCP Family Medicine; Visit Provider Student in an Organized Health Care Education/Training Program
DX: O13.9 Gestational [pregnancy-induced] hypertension without significant proteinuria, unspecified trimester (principal); Z3A.00 Weeks of gestation of pregnancy not specified
CPT/HCPCS: 36415; 59025; 80053; 84550; 85025; J0702

== ENCOUNTER 2022-11-20 10:32 | Outpatient (CLI) | payer OTHER, SELFPAY ==
[2022-11-20 10:48] VITALS: BMI 28.8
[2022-11-20 11:28] LABS: Alanine Aminotransferase 240 U/L (6-35); Albumin Level 3.8 g/dL (3.5-5.1); Alkaline Phosphatase 142 U/L (38-126); Anion Gap 12 mmol/L (8-16); Aspartate Amino Transferase 167 U/L (14-36); Bilirubin,Total 0.5 mg/dL (0.2-1.3); Blood Urea Nitrogen 11 mg/dL (7-17); Calcium 9.3 mg/dL (8.4-10.2); Carbon Dioxide 19 mmol/L (22-30); Chloride 107 mmol/L (98-107); Estimated CRCL calculation 149 ml/min; Estimated Glomerular Filt Rate > 60; Glucose 112 mg/dL (65-110); Potassium 3.8 mmol/L (3.4-5.0); Sodium 138 mmol/L (137-145)
[2022-11-20 11:48] LABS: Collection Time Urine 24 HOURS
[2022-11-20 11:49] LABS: Total Volume 24 Hour Urine 2750 ml
[2022-11-20 12:02] LABS: Total Protein Urine 24 Hr 192 mg/24hr (28-141); Total Protein Urine Random 7 mg/dL
[2022-11-20 12:03] LABS: Creatinine Clearance Urine 194.4 ml/min (75-125); Creatinine Urine 55.8 mg/dL; Patient Weight 178 Lbs
[2022-11-20 12:06] LABS: Specific Gravity Ur 1.015
== END 2022-11-20 10:33 | disposition home or self-care (01) ==
LOC: ANHOBOP 10:43
PROVIDERS: Advanced Practice Midwife; PCP Family Medicine; Visit Provider Obstetrics & Gynecology Gynecology
DX: R74.8 Abnormal levels of other serum enzymes (principal)
CPT/HCPCS: 36415; 80053; 81050; 82575; 84156

== ENCOUNTER 2022-11-20 17:14 | Observation (INO) | payer OTHER, SELFPAY ==
--- NOTE | ~2022-11-20 | US_ITS ---
EXAMINATION: US OB BPP wo non-stress DATE: 11/20/2022 19:33 INDICATION: Elevated liver enzymes TECHNIQUE: Real-time pelvic ultrasound was performed. The interpreting radiologist was not present fo r the study. COMPARISON: None. FINDINGS: There is a single living fetus in vertex presentation. The placenta is right anterior. heart r ate is 145 beats per minute (bpm). Biophysical profile performed by the technologist: breathing (30 sec sustained breathing in 30 minutes): 2 out of 2 movement (3 gross body movements in 30 minutes): 2 out of 2 tone (one episode of jpkkyov-[id number]-oaakrac limb movement): 2 out of 2 Amniotic fluid pocket (2 cm): 2 out of 2 Total score: 8 out of 8 IMPRESSION: 1. Single living fetus in vertex presentation with heart rate of 145 bpm. 2. Biophysical profile 8 out of 8. Reviewed, dictated and finalized at location A.
[2022-11-20 17:46] VITALS: BP 107/65; PULSE 75
--- NOTE | 2022-11-20 17:59 | OBADM ---
This patient, Jolene Bowers, admitted to the OB room OB Post 115 for observation. Patient/family oriented to hospital policies and general routines including ID bracelet, bed and alarms, visiting hours, pain management, procedures, bathroom and other care routines, personal items, smoking policy, room service/diet, and visiting hours. Patient/Family are encouraged to report perceived risks to care and to ask questions if they do not understand what they are told or what they should do.
[2022-11-20 18:01] VITALS: BP 105/64; PULSE 74
[2022-11-20 18:02] LABS: Basophils Absolute Auto 0.1 K/mm3 (0.0-0.1); Basophils Percent Auto 0.5 % (0.2-1.2); Eosinophils Absolute Auto 0.2 K/mm3 (0-0.3); Hematocrit 34.1 % (37.0-47.0); Hemoglobin 11.4 g/dL (12.0-15.0); Immature Granulocyte Absolute 0.11 K/mm3 (0.00-0.031); Lymphocytes Absolute Auto 2.34 K/mm3 (0.9-3.2); Lymphocytes Percent Auto 22.2 % (18.3-44.2); Mean Corpuscular HGB Conc 33.4 g/dl (32-36); Mean Corpuscular Hemoglobin 29.4 pg (26-34); Mean Corpuscular Volume 87.9 fl (80-100); Mean Platelet Volume 10.7 fl (7.4-10.4); Monocytes Absolute Auto 0.7 K/mm3 (0.1-0.6); Neutrophils Absolute Auto 7.1 K/mm3 (1.3-6.7); Neutrophils Percent Auto 67.3 % (45.5-73.1); Platelet Count Result 177 k/mm3 (150-375); Red Blood Count 3.88 M/mm3 (4.2-5.4); Red Cell Distribution Width 12.9 % (11.5-14.5); White Blood Count 10.6 K/mm3 (4.5-10.0)
[2022-11-20 18:33] VITALS: BMI 29.5
[2022-11-20 19:36] LABS: Hepatitis B Surface Antigen Negative (Negative)
[2022-11-20 19:42] LABS: HAV RESULT Negative (Negative); Hepatitis B Core IgM Result Negative (Negative)
[2022-11-20 19:56] LABS: Hepatitis C Virus Antibody Negative (Negative)
[2022-11-20] MEDS: ursodioL 300 MG CAPSULE PO (20:37)
[2022-11-20 22:17] VITALS: BP 97/49; PULSE 67
[2022-11-20 22:21] VITALS: BP 88/57; PULSE 65
[2022-11-21 01:09] VITALS: BP 107/67; PULSE 60
[2022-11-21 01:10] VITALS: TEMP 36.9
[2022-11-21] MEDS: ACETAMINOPHEN 500 MG TABLET 1000 MG PO (01:10)
[2022-11-21 05:16] VITALS: BP 110/53; PULSE 78
[2022-11-21] MEDS: ursodioL 300 MG CAPSULE PO (05:18)
--- NOTE | 2022-11-21 08:13 | PM.IMHP ---
H&P: HPI History of Present Illness Date/Time: 11/21/22 08:13 Chief Complaint: pruritus in elevated liver enzymes intrauterine at 35 wks Narrative: 27-year-old 013 who presents at 35 weeks with concerns for cholestasis of . Patient had been experiencing itching in her hands and feet for the past several weeks. Patient had bile acids drawn last Wednesday but results are pending. Patient was noted to have elevated liver enzymes. Patient had follow-up outpatient with repeat labs which showed increase in liver enzymes. Patient was recently started on Ursodiol. Patient reports good movement. Patient's obstetric history is complicated by preeclampsia x3 resulting . Patient had a mild earlier this week. She denies any scotoma, right upper quadrant pain, change in swelling. Patient's blood pressures have been normal and her urine protein creatinine ratio has been normal. Review of Systems Cardiovascular: Cardiovascular: Denies chest pain, Denies leg edema, Denies palpitations, Denies dyspnea and Denies dyspnea on exertion Respiratory: Respiratory: Denies cough, Denies dyspnea and Denies dyspnea on exertion Gastrointestinal: Gastrointestinal: Denies abdominal pain, Denies constipation, Denies diarrhea, Denies nausea and Denies vomiting Genitourinary: Genitourinary: Denies hematuria, Denies urinary frequency, Denies dysuria, Denies pelvic pain, Denies urinary incontinence and Denies vaginal discharge Neurologic: Reports system reviewed and no additional complaints, except as documented Psychiatric: Psychiatric: Reports no additional psychiatric complaints Endocrine: Endocrine: Denies palpitations PMF Past Medical History Medical History BMI 28.0-28.9,adult Muscle strain of right upper arm Family History Family History Father Hypertension Diabetes mellitus Emphysema lung Mother Hypertension Heart disease Fibromyalgia Sibling No problems noted. Sibling , cerebral palsy-28 years old. No problems noted. 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 Gender identity (if verbalized by the patient): Female Meds Home Medications and Allergies Home Medications Medication Instructions Recorded Confirmed Type [id number] 3-fat com #1 27 cap PO 10/13/22 10/13/22 History mg-1 mg-300 mg capsule Allergies Allergy/AdvReac Type Severity Reaction Status Date / Time Sulfa (Sulfonamide Allergy Mild Unknown Verified 11/20/22 19:51 Antibiotics) amoxicillin Allergy Unknown Unknown Verified 11/20/22 19:51 chlorphentermine Allergy Unknown Unknown Verified 11/20/22 19:51 dextromethorphan Allergy Unknown Unknown Verified 11/20/22 19:51 Penicillins Allergy Unknown RASH Verified 11/20/22 19:51 phenylephrine Allergy Unknown Unknown Verified 11/20/22 19:51 pseudoephedrine Allergy Unknown Unknown Verified 11/20/22 19:51 Vital Signs Vital Signs - 24 hr 11/20/22 17:59 11/20/22 17:46 11/20/22 18:01 Temperature Pulse Rate 75 74 Blood Pressure 107/65 105/64 Oxygen Delivery Room Air 11/20/22 22:17 11/20/22 22:21 11/21
--- NOTE | 2022-11-21 08:19 | PM.DS ---
DS: Admitting Diagnosis Discharge Date 11/21/22 Admitting Diagnosis elevated liver enzymes Pruritus in Intrauterine at 35 weeks DS: Discharge Diagnosis Discharge Diagnosis (1) Pruritus of in third trimester: Code(s): O99.713 - Diseases of the skin and subcutaneous tissue complicating , third trimester; L29.9 - Pruritus, unspecified Status: Acute (2) Elevated liver enzymes: Code(s): R74.8 - Abnormal levels of other serum enzymes Status: Acute DS: Summary Hospital Course Reason for hospitalization: suspected cholestasis Hospital Course: 27-year-old 013 who presents at 35 weeks elevated liver enzymes in pruritus in . Patient's itching improved with an increase in her Ursodiol. BPP score of 8/8. monitoring remained reassuring overnight. Patient remained normotensive. Patient did not require any added Benadryl or Vistaril for itching sensation. Patient reports good movement. Status at Discharge Functional status at discharge: independent ambulation Time Spent with Patient Time attestation: Total time spent providing and/or coordinating discharge services: Time spent: Less than 30 minutes Exam Const: General: no acute distress Resp: Effort & Inspection: normal respiratory effort Auscultation: clear to auscultation bilaterally Cardio: Rate: regular rate Rhythm: regular rhythm GI: Inspection: non-distended GI Palp: Yes Soft to palpation, No Tenderness to palpation present (GI) and No Guarding due to palpation present (GI) Auscultation: normal bowel sounds Skin: General skin exam: normal color and no rashes or lesions noted Neuro: Cognition (Neuro): normal cognition Speech: normal speech Extrem: General: normal to inspection and no edema Psych: Mental Status: mental status grossly normal Affect: normal affect DS: Data Data Completed and Pending Labs on day of discharge: Labs from last 24 hours 11/20/22 17:44 WBC 10.6 H RBC 3.88 L Hgb 11.4 L Hct 34.1 L MCV 87.9 MCH 29.4 MCHC 33.4 RDW 12.9 Plt Count 177 MPV 10.7 H Immature Gran % (Auto) 1.0 H Neut % (Auto) 67.3 Lymph % (Auto) 22.2 [place] % (Auto) 7.0 Eos % (Auto) 2.0 Baso % (Auto) 0.5 Lymph # (Auto) 2.34 [place] # (Auto) 0.7 H Eos # (Auto) 0.2 Baso # (Auto) 0.1 Abs Immat Gran (auto) 0.11 H Absolute Neuts (auto) 7.1 H Absolute Nucleated RBC 0.0 Nucleated RBC % 0.0 Hepatitis A IgM Ab Negative Hep Bs Antigen Negative Hep B Core IgM Ab Negative Hepatitis C Ab Screen Negative Discharge Plan Discharge Discharging Clinician: Hussein Saleh Patient Disposition: Home, Self-Care Activity: as tolerated and pelvic rest Diet: regular Patient Instructions: Antibiotic Form Stand Alone Forms: General Discharge Information Follow-up/Referrals: Dyan Fuller MD [Physician] - 1 Week Discharge Medications: New ursodiol 300 mg capsule 300 mg PO TID Qty: 60 0RF Continued [id number]-omega 3-fat com #1 27-1-300 mg capsule PO Date of admission: 11/20/22 17:14 Primary Care Provider: Estuardo Bills Admitting Provider: Dyan Fuller Attending physician on admission: Dyan Fuller Condition: Stable
[2022-11-21 10:03] VITALS: TEMP 35.7
[2022-11-21 10:04] VITALS: BP 117/68; PULSE 71
== END 2022-11-21 10:05 | disposition home or self-care (01) ==
PROVIDERS: Admitting Provider Advanced Practice Midwife; PCP Family Medicine; Visit Provider Student in an Organized Health Care Education/Training Program
DX: O99.713 Diseases of the skin and subcutaneous tissue complicating pregnancy, third trimester (principal); L29.9 Pruritus, unspecified; O26.613 Liver and biliary tract disorders in pregnancy, third trimester; R74.8 Abnormal levels of other serum enzymes; Z3A.35 35 weeks gestation of pregnancy
CPT/HCPCS: 36415; 76819; 80053; 80074; 81050; 82575; 84156; 85025; A9270; G0378; G0379

== ENCOUNTER 2022-11-22 10:00 | Inpatient (IN) | payer OTHER, SELFPAY ==
[2022-11-22] VITALS (81 sets, daily range): BP systolic 97–170; BP diastolic 54–155; PULSE 54–184; RESP 16; TEMP 36.5–37.1; O2SAT 96–100; BMI 29.7
[2022-11-22] MEDS: LACTATED RINGERS 1,000 ML 999 ML IV CONT ×2 (10:49→11:35)
[2022-11-22] MEDS: VANCOMYCIN 1,000 MG/NS 250 ML 1,000 MG/250 ML BAG 250 MG IVPB (10:52)
[2022-11-22 10:53] LABS: Basophils Absolute Auto 0.1 K/mm3 (0.0-0.1); Basophils Percent Auto 0.4 % (0.2-1.2); Eosinophils Absolute Auto 0.4 K/mm3 (0-0.3); Eosinophils Percent Auto 2.5 % (0-4.4); Hematocrit 37.8 % (37.0-47.0); Hemoglobin 12.8 g/dL (12.0-15.0); Immature Granulocyte Absolute 0.12 K/mm3 (0.00-0.031); Immature Granulocyte Percent A 0.8 % (0-0.5); Lymphocytes Absolute Auto 2.81 K/mm3 (0.9-3.2); Lymphocytes Percent Auto 19.3 % (18.3-44.2); Mean Corpuscular HGB Conc 33.9 g/dl (32-36); Mean Corpuscular Hemoglobin 29.2 pg (26-34); Mean Corpuscular Volume 86.1 fl (80-100); Mean Platelet Volume 10.8 fl (7.4-10.4); Monocytes Absolute Auto 0.9 K/mm3 (0.1-0.6); Monocytes Percent Auto 5.8 % (2.6-8.5); Neutrophils Absolute Auto 10.3 K/mm3 (1.3-6.7); Neutrophils Percent Auto 71.2 % (45.5-73.1); Platelet Count Result 202 k/mm3 (150-375); Red Blood Count 4.39 M/mm3 (4.2-5.4); Red Cell Distribution Width 12.6 % (11.5-14.5); White Blood Count 14.5 K/mm3 (4.5-10.0)
[2022-11-22 11:06] LABS: Alanine Aminotransferase 241 U/L (6-35); Albumin Level 3.8 g/dL (3.5-5.1); Alkaline Phosphatase 179 U/L (38-126); Anion Gap 12 mmol/L (8-16); Aspartate Amino Transferase 111 U/L (14-36); Bilirubin,Total 0.6 mg/dL (0.2-1.3); Blood Urea Nitrogen 12 mg/dL (7-17); Calcium 9.4 mg/dL (8.4-10.2); Carbon Dioxide 16 mmol/L (22-30); Chloride 105 mmol/L (98-107); Estimated Glomerular Filt Rate > 60; Glucose 85 mg/dL (65-110); Potassium 3.5 mmol/L (3.4-5.0); Sodium 133 mmol/L (137-145)
--- NOTE | 2022-11-22 11:40 | LDADM ---
This patient, Jolene Bowers, was admitted to Labor/Delivery/Recovery 104 on 11/22/22 at 10:00. Plans for labor, pain management and were discussed with patient. Patient/family oriented to hospital policies and general routines including ID bracelet, bed and alarms, visiting hours, pain management, procedures, bathroom and other care routines, personal items, smoking policy, room service/diet and guest tray routines, security routines, and visiting hours. Patient/Family are encouraged to report perceived risks to care and to ask questions if they do not understand what they are told or what they should do. See OBIX for further documentation.
[2022-11-22 11:46] LABS: HIV 1/2 Ab P24 Ag Result Negative (Negative)
[2022-11-22] MEDS: OXYTOCIN 30 UNITS/NS 500 ML 30 UNITS/500 ML BAG 999 UNITS IV CONT (12:02)
--- NOTE | 2022-11-22 12:30 | WPDHPUPDATE1 ---
History and Physical Update Update Date/Time: 11/22/22 12:30 History and Physical has been reviewed, including an updated exam of the patient. There are NO changes in the patient's condition. Risks, benefits, and alternatives have been discussed and questions answered. Patient agrees to proceed with procedure. Pruritis and elevated LFTs in . Suspected cholestasis of but bile acids pending.
--- NOTE | 2022-11-22 12:33 | PM.OBPRVD ---
OB - Delivery Note Procedure Delivery date: 11/22/22 Procedure: Events: Other ( labor, Pruritis and elevated LFTs at 34 weeks gestations) Induction method: None Delivery monitor: External FHT and External Uterine Route of delivery: Episiotomy description: None Laceration Description: Labial (Right labial 1st degree, hemostatic. No repair required. ) Specimen: Yes (placenta) Quantitative Blood Loss (ml): 150 Anesthesia type: Epidural Disposition: Floor Complications: Meconium statined fluid Narrative: Patient arrived to Labor and delivery in active labor. She was admitted and given vancomycin for group B strep prophylaxis. An epidural was placed per her request. She progressed quickly to complete dilation and pushed with contractions. She pushed 4-5 times before bringing the baby's head to a complete crown. Prior to the infant there was spontaneous rupture of membranes with large amount of dark green/ brown meconium stained fluid. She delivered the head over intact perineum at which time a loose nuchal cord and compound presentation was identified. She pushed but there was no further descent of the vertex. The left elbow was palpated and pressure applied posteriorly. The left arm then delivered followed by the right shoulder and right arm. The remainder of the was delivered easily and placed on maternal abdomen for assessment by the pediatric team. Before 30 seconds of life, at the request of the nursery staff the cord was doubly clamped and cut. Cord blood, cord gases, and cord segment were obtained. The placenta delivered in the Sampson presentation. There was excellent uterine tone and hemostasis. All delivery counts correct Baby Date of : 11/22/22 Time of : 12:00 Weeks of gestation at delivery: 35 (35 weeks 3 days) gender: Male Weight (pounds): 6 Weight (ounces): 9 presentation: compound (vertex, compound presentation with left hand/arm) position: Left Occiput Anterior Placenta delivery description: Spontaneous Cord Vessel Description: 3 Vessels, Nuchal Cord (x 1), Loose and Clamped/Cut Narrative: scores not available at the time of this note. in nursery for further assessment and CPAP
[2022-11-22] MEDS: OXYTOCIN 30 UNITS/NS 500 ML 30 UNITS/500 ML BAG 125 UNITS IV CONT (12:34)
--- NOTE | 2022-11-22 12:44 | PM.OBDSVD ---
DS: Admitting Diagnosis Discharge Date 11/23/2022 Admitting Diagnosis 27 y.o. at 35 weeks 3 days Labor Pruritis and Elevated LFTs in (Suspected cholestasis but bile acids pending at this time) Rh negative Hx Preeclampsia in 3 prior pregnancies Depression with Hx cutting (Several years ago) PCOS DS: Discharge Diagnosis Discharge Diagnosis (1) (normal spontaneous vaginal delivery): Code(s): O80 - Encounter for full-term uncomplicated delivery Status: Acute (2) Anxiety: Code(s): F41.9 - Anxiety disorder, unspecified Status: Acute (3) Rh negative status during : Code(s): O26.899 - Other specified related conditions, unspecified trimester; Z67.91 - Unspecified blood type, Rh negative Status: Acute Assessment and Plan: Plan for Rhogam prior to discharge home. (4) Elevated liver enzymes: Code(s): R74.8 - Abnormal levels of other serum enzymes Status: Acute Assessment and Plan: Bile acids pending. (5) Pruritus of in third trimester: Code(s): O99.713 - Diseases of the skin and subcutaneous tissue complicating , third trimester; L29.9 - Pruritus, unspecified Status: Acute (6) Patient is a currently breast-feeding mother: Code(s): Z39.1 - Encounter for care and examination of lactating mother Status: Acute Assessment and Plan: Pumping. Resources discussed OB - DS: Summary Hospital Course Hospital Course: Uncomplicated OB Procedures : NST and Ultrasound OB Procedures Intrapartum: Spontaneous Vag Delivery and GBS prophylaxis OB Procedures: : RHo (D) lg Peripartum Data Delivery Method: Natural Vaginal Laceration Description: Labial (Right labial first degree, homostatic. No repair required. ) Episiotomy description: None complications: none Status at Discharge Overall status at discharge: patient is progressing back to baseline Time Spent with Patient Time attestation: Total time spent providing and/or coordinating discharge services: Exam Narrative: Alert and oriented. Mood is pleasant and cooperative. Perineum with minimal edema. Fundus firm and below umbilicus. Const: General: cooperative, healthy appearing, no acute distress and alert Orientation/consciousness: patient oriented x3 Limitations: no limitations Resp: Effort & Inspection: normal respiratory effort and able to speak in complete sentences Auscultation: clear to auscultation bilaterally Cardio: Rate: regular rate GI: Inspection: normal to inspection Auscultation: normal bowel sounds : General: Yes bladder normal to palpation Bimanual exam- vagina & uterus: bladder normal to palpation OB/external & speculum: vaginal bleeding (WNL) Skin: General skin exam: normal color and no rashes or lesions noted Neuro: General: patient oriented x3 and moves all extremities Cognition (Neuro): normal cognition Extrem: General: normal to inspection and no calf tenderness Psych: Appearance: grossly normal Mental Status: mental status grossly normal Affect: normal affect Thought process: Normal thought process present DS: Data Data Completed and Pending Pending studies at discharge: Pending at discharge 11/22/22 12:07 Surgical [PTH] Routine Labs on day of discharge: Labs from last 24 hours 11/22/22 11/22/22 10:45 10:40 WBC 14.5 H RBC 4.39 Hgb 12.8 Hct 37.8 MCV 86.1 MCH 29.2 MCHC 33.9 RDW 12.6 Plt Count 202 MPV 10.8 H Immature Gran % (Auto) 0.8 H Neut % (Auto) 71.2 Lymph % (Auto) 19.3 [place] % (Auto) 5.8 Eos % (Auto) 2.5 Baso % (Auto) 0.4 Lymph # (Auto) 2.81 [place] # (Auto) 0.9 H Eos # (Auto) 0.4 H Baso # (Auto) 0.1 Abs Immat Gran (auto) 0.12 H Absolute Neuts (auto) 10.3 H Absolute Nucleated RBC 0.0 Nucleated RBC % 0.0 Sodium 133 L Potassium 3.5 Chloride 105 Carbon Dioxide
--- NOTE | 2022-11-22 12:52 | WPDOBADMIT ---
Obstetrics - Admit Note Admission Note: record reviewed. No pertinent additions to the history and/or any subsequent changes in the physical findings that are not consistent with the expected course of the were found. Additions to the history and/or subsequent changes in the physical findings follow. Elevated liver enzymes and pruritis during . Suspected cholestasis but bile acids pending. No evidence of preeclampsia.
[2022-11-22] MEDS: IBUPROFEN 600 MG TABLET PO ×2 (12:59→19:57)
[2022-11-22] MEDS: ACETAMINOPHEN 325 MG TABLET 650 MG PO ×2 (12:59→23:43)
--- NOTE | 2022-11-22 15:04 | OBPPTRN ---
Patient transferred to post room #291 via wheelchair. Support person present. Oriented to unit, room, information board, rooming in, admission packet and security measures. Patient verbalizes understanding.
--- NOTE | 2022-11-22 15:10 | PC.NURSE ---
Breast pump provided due to separation from infant. Instructions given on cleaning, care, usage, that there should be no pain, pumping schedule for milk production, collection, and storage of human milk. Patient was assessed for correct placement, flange size, to pump for comfort and nipple stretching/stimulation for adequate milk production every 3 hours (8 times in 24 hours) 1-2 times at night. Mother voiced understanding of the education shared along with mom and baby guide for additional resource information.
[2022-11-22] MEDS: DOCUSATE SODIUM 100 MG CAPSULE PO (19:57)
[2022-11-23] MEDS: IBUPROFEN 600 MG TABLET PO (04:07)
[2022-11-23 04:45] VITALS: BP 101/68; PULSE 61; RESP 16; TEMP 36.7; O2SAT 98
[2022-11-23 05:17] LABS: Hematocrit 37.6 % (37.0-47.0); Hemoglobin 12.6 g/dL (12.0-15.0)
--- NOTE | 2022-11-23 07:36 | PM.OBPNVD ---
OB - PN: Subj Subjective Date/time seen: 11/23/22 07:34 Patient comments: no complaints and pain well controlled [facility] [place] feeding status: pumping and storing Narrative: Doing well. Urinating without difficulty. Denies passing any large clots. Denies dizziness with ambulating. Tolerating po food an fluids. OB - PN: Obj Data Labs 11/23/22 04:12 11/22/22 10:40 Labs: Laboratory Results - last 24 hr 11/22/22 11/22/22 11/23/22 10:40 10:45 04:12 WBC 14.5 H RBC 4.39 Hgb 12.8 12.6 Hct 37.8 37.6 MCV 86.1 MCH 29.2 MCHC 33.9 RDW 12.6 Plt Count 202 MPV 10.8 H Immature Gran % (Auto) 0.8 H Neut % (Auto) 71.2 Lymph % (Auto) 19.3 [place] % (Auto) 5.8 Eos % (Auto) 2.5 Baso % (Auto) 0.4 Lymph # (Auto) 2.81 [place] # (Auto) 0.9 H Eos # (Auto) 0.4 H Baso # (Auto) 0.1 Abs Immat Gran (auto) 0.12 H Absolute Neuts (auto) 10.3 H Absolute Nucleated RBC 0.0 Nucleated RBC % 0.0 Sodium 133 L Potassium 3.5 Chloride 105 Carbon Dioxide 16 L Anion Gap 12 BUN 12 Creatinine 0.50 L Estim Creat Clear Calc Not Reportable Estimated GFR > 60 Glucose 85 Calcium 9.4 Total Bilirubin 0.6 AST 111 H ALT 241 H Alkaline Phosphatase 179 H Total Protein 7.0 Albumin 3.8 HIV 1&2 Ab/P24 Ag 4thGn Negative Blood Type A Negative A Negative Antibody Screen Positive Antibody Identification Passive Due to RH Imm Glob Cancelled Antigen Identification Not Reportable Cancelled LLOYD, IgG Interpret Not Performed Cancelled LLOYD, Poly Interpret Negative Cancelled LLOYD, Complement Interp Not Performed Cancelled Baby's Blood Type A pos Baby's LLOYD Positive OB - PN A/P Plan day: 1 Plan: discharge home Comments: Desires DC home today. Time Spent With Patient Time: Total time spent is greater than 50% in coordination of care (as documented) at patient's floor/unit and/or counseling patient: Review of Systems Review of Systems: All systems reviewed & are unremarkable except as noted in HPI and below Exam Narrative: Alert and oriented. Mood is pleasant and cooperative. Perineum with minimal edema. Fundus firm and below umbilicus. Const: General: cooperative, healthy appearing, no acute distress and alert Orientation/consciousness: patient oriented x3 Limitations: no limitations Resp: Effort & Inspection: normal respiratory effort and able to speak in complete sentences Auscultation: clear to auscultation bilaterally Cardio: Rate: regular rate GI: Inspection: normal to inspection Auscultation: normal bowel sounds : General: Yes bladder normal to palpation Bimanual exam- vagina & uterus: bladder normal to palpation OB/external & speculum: vaginal bleeding (WNL) Skin: General skin exam: normal color and no rashes or lesions noted Neuro: General: patient oriented x3 and moves all extremities Cognition (Neuro): normal cognition Extrem: General: normal to inspection and no calf tenderness Psych: Appearance: grossly normal Mental Status: mental status grossly normal Affect: normal affect Thought process: Normal thought process present
--- NOTE | 2022-11-23 07:38 | WPDANLDPN2 ---
Anes-Prog Note L&D Date/Time: 11/23/22 07:38 Comfortable throughout: labor and delivery Neuraxial method: epidural Epidural/Spinal procedure site: clean & non-tender Neuro status: Neuro function grossly intact. Cardiovascular status: normal Respiratory status: normal Airway patency: baseline Mental status: baseline Post-Op hydration status: normal Vital Signs: Last Vital Signs Temp 36.7 C 11/23/22 04:45 Pulse 61 11/23/22 04:45 Resp 16 11/23/22 04:45 BP 101/68 11/23/22 04:45 Pulse Ox 98 11/23/22 04:45 O2 Del Method Room Air 11/23/22 04:45 Pain score (VAS): 0 I/O: Intake & Output 11/22/22 11/22/22 11/23/22 15:59 23:59 07:59 Intake Total 1500 740 Output Total 850 Balance 650 740 Post-procedural complaints: none Patient feedback: Patient satisfied with anesthetic care.
[2022-11-23 08:10] VITALS: BP 116/75; PULSE 61; RESP 16; TEMP 36.5; O2SAT 99
[2022-11-23] MEDS: RHO(D) IMMUNE GLOBULIN 300 MCG/2 ML SYRINGE IM (08:34)
[2022-11-23] MEDS: ACETAMINOPHEN 325 MG TABLET 650 MG PO (08:41)
[2022-11-23] MEDS: MULTIVIT/MIN/PREN/FOL AC/IRON TABLET 1 TAB PO (08:42)
[2022-11-23] MEDS: DOCUSATE SODIUM 100 MG CAPSULE PO (08:42)
[2022-11-23 15:31] LABS: Rapid Plasma Reagin Non-Reactive (NonReactive)
== END 2022-11-23 10:45 | disposition home or self-care (01) | DRG 560 ==
LOC: ANHLDR 12:51 → ANHOB2 15:11
PROVIDERS: Advanced Practice Midwife; Admitting Provider Obstetrics & Gynecology Gynecology; PCP Family Medicine; Visit Provider Obstetrics & Gynecology Gynecology
DX: O60.14X0 Preterm labor third trimester with preterm delivery third trimester, not applicable or unspecified (principal); Z37.0 Single live birth; O26.893 Other specified pregnancy related conditions, third trimester; L29.9 Pruritus, unspecified; O77.0 Labor and delivery complicated by meconium in amniotic fluid; O70.0 First degree perineal laceration during delivery; Z3A.35 35 weeks gestation of pregnancy; Z67.91 Unspecified blood type, Rh negative; R74.8 Abnormal levels of other serum enzymes
CPT/HCPCS: 36415; 80053; 85014; 85018; 85025; 85461; 86592; 86703; 86850; 86880; 86900; 86901; 86902; 88307; 90384; A9270; G0432; J2590; J2790; J3370; J7120

== ENCOUNTER 2023-01-06 07:00 | Outpatient (CLI) | payer OTHER, SELFPAY ==
--- NOTE | 2023-01-06 07:11 | ECG_ITS ---
Measurements Intervals [place] Rate: 58 P: 64 CT: 151 QRS: 63 QRSD: 98 T: 39 QT: 405 QTc: 398 Interpretive Statements SINUS BRADYCARDIA COMPARED TO ECG 10/05/2022 13:18:08 SINUS BRADYCARDIA NOW PRESENT Electronically Signed On 01-06-2023 11:21:19 CDT by Neva Wood M.D.
== END 2023-01-06 07:01 | disposition home or self-care (01) ==
LOC: ANHSURGERY 07:03
PROVIDERS: PCP Family Medicine; Visit Provider Obstetrics & Gynecology Gynecology
DX: R94.31 Abnormal electrocardiogram [ECG] [EKG] (principal)
CPT/HCPCS: 93005

== ENCOUNTER 2023-01-11 01:16 | Day surgery (SDC) | payer OTHER, SELFPAY ==
[2023-01-04 14:39] VITALS: BMI 27.6
--- NOTE | 2023-01-04 15:05 | SUR.PREOP ---
Report to the Outpatient Waiting Room, entrance under the green pavilion located off [facility], at time 0600 on date 01/11/2023. Planned Procedure Time: 0730. Time changes happen often and if your time is changed the preop area will call you the afternoon before. - You and your visitor will be asked to self-screen and do not enter if you have any COVID symptoms. - A mask is optional within the hospital at this time. Patients may have clear liquids (water, carbonated beverages, clear teas, apple juice) until 3 hours prior to surgery with a maximum of 20 ounces- 0430. - No food from midnight until time of surgery - Infants may have breast milk until 4 hours before surgery, infant formula 6 hours prior to surgery. - Children will be allowed to drink immediately following surgery. If applicable, please bring a bottle or sippy cup to assist with drinking. Juice, water, soda, and popsicles are readily available. For infants on formula, please bring formula the day of surgery. Pacifiers are allowed. Take the following medications with a SIP of water the morning of surgery: N/A DO NOT STOP ANY OF YOUR OTHER PRESCRIPTION MEDICATIONS PRIOR TO SURGERY ?EXCEPT THE FOLLOWING Medications to discontinue per physician prenatal vitamin- 3 days Date to take last dose 01/08/23 Please no make-up, nail armenian, hairspray, perfume, deodorant, or body powder the day of surgery. No jewelry (including any body piercings) or valuables the day of surgery, leave them at home. Please take a shower or bath the night before, or the morning of, surgery with an antibacterial soap. Wear comfortable, loose fitting clothing. Children are encouraged to wear pajamas. - Jewelry must be removed prior to entering the operating room. Rings and piercings that are not removed may be cut off. - The hospital will not accept responsibility for valuables. - Please leave all valuables, including medications, at home the day of surgery. If you are going home after surgery, a licensed pile driver operator helper must drive you home. - NO public transportation without another adult if you receive anesthesia. - We recommend that an adult stay with you for 24 hours following discharge. - We also recommend that you do not drive, make important decision, drink alcoholic beverages, or take any drugs that were not prescribed by your health care provider for at least 24 hours after your discharge time. For Pediatric surgeries, we recommend two adults accompany the child home. Follow any additional instructions given to you from your surgeon. If you or anyone in your household have experienced Covid symptoms in the past week, please notify your surgeon or the nurse liaison at the phone number below for possible testing. Telephone instructions given to ____Amber and asked if any additional questions and then verbalized understanding. Patient advised to call surgeon office or pre surgery nurse liaison [phone] if any additional questions.
[2023-01-11] VITALS (9 sets, daily range): BP systolic 100–134; BP diastolic 69–91; PULSE 57–98; RESP 12–20; TEMP 36.1; O2SAT 97–100
--- NOTE | 2023-01-11 07:09 | WPDHPUPDATE1 ---
History and Physical Update Update Date/Time: 01/11/23 07:09 History and Physical has been reviewed, including an updated exam of the patient. There are NO changes in the patient's condition. Risks, benefits, and alternatives have been discussed and questions answered. Patient agrees to proceed with procedure.
--- NOTE | 2023-01-11 07:09 | PM.HPGS ---
History of Present Illness History of Present Illness Consent: Risks, benefits, and alternatives have been discussed and questions answered. Patient agrees to proceed with procedure. Chief complaint: Desires Sterilization Narrative: Jolene Bowers is a 27 year old female who has completed her childbearing and wishes to proceed with permanent sterilization. Plan is to proceed with laparoscopic bilateral salpingectomy. Risks of infection, bleeding, injury to internal organs, and general anesthesia are reviewed. Risk of failed tubal ligation resulting in ectopic or intrauterine was also reviewed. The patient was aware this is a permanent and irreversible sterilizing procedure. Patient voices understanding and agrees to proceed Review of Systems Review of Systems: not repeated day of surgery; patient states no changes in status PMFSH Past Medical History Medical History (Updated 01/11/23 @ 07:12 by Dyan Fuller MD) BMI 28.0-28.9,adult Depression (normal spontaneous vaginal delivery) X4 PCOS (polycystic ovarian syndrome) Surgical History Surgical History (Updated 01/11/23 @ 07:11 by Dyan Fuller MD) History of D&C 2015 spontaneous History of tonsillectomy Family History Family History Father Hypertension Diabetes mellitus Emphysema lung Mother Hypertension Heart disease Fibromyalgia Sibling No problems noted. Sibling , cerebral palsy-28 years old. No problems noted. Other Family history of coronary artery disease Social History Social History Smoking status: Never smoker Second hand tobacco smoke exposure: No Alcohol intake: current Alcohol use details: socially Substance use: never Substance use type: does not use Lack of Transportation: No Lack of Food: Never True Current Housing: I Have Housing Concerned About Future Housing: No Difficulty Paying Gas/Electric Bills: No Difficulty Paying for Meds: No Currently Unemployed: No Education: Decline to Answer Difficulty w/ Childcare or Family Care: No Living arrangements: with family Occupation/Education: occupation 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 Gender identity (if verbalized by the patient): Female Spiritual care concerns: No Meds Home Medications and Allergies Home Medications Medication Instructions Recorded Confirmed Type [id number] 3-fat com #1 27 1 cap PO DAILY 10/13/22 01/04/23 History mg-1 mg-300 mg capsule Allergies Allergy/AdvReac Type Severity Reaction Status Date / Time amoxicillin Allergy Severe Rash Verified 01/04/23 14:37 Sulfa (Sulfonamide Allergy Severe Rash Verified 01/04/23 14:37 Antibiotics) chlorphentermine Allergy Unknown Unknown Verified 01/04/23 14:37 dextromethorphan Allergy Unknown Unknown Verified 01/04/23 14:37 Penicillins Allergy Unknown RASH Verified 01/04/23 14:37 phenylephrine Allergy Unknown Unknown Verified 01/04/23 14:37 pseudoephedrine Allergy Unknown Unknown Verified 01/04/23 14:37 Exam Const: General: healthy appearing and alert Orientation/consciousness: patient oriented x3 Resp: Effort & Inspection: normal respiratory effort GI: GI Palp: Yes Soft to palpation, No Tenderness to palpation present (GI) and No Palpable mass present : External Female Exam: normal external appearance Speculum Exam - Vagina: normal appearance of the vagina and normal vaginal discharge Speculum Exam - Cervix: normal appearance of the cervix Bimanual exam- vagina & uterus: uterine size normal and consistency normal Bimanual Exam- Adnexa, other: normal adnexae and No adnexal tenderness Neuro: General: patient oriented x3 Assessment and Plan Assessment and plan (1) Encounter for sterilization: Code(s): Z30.2 -
[2023-01-11] MEDS: ACETAMINOPHEN 500 MG TABLET 1000 MG PO (08:11)
[2023-01-11] MEDS: LACTATED RINGERS 1,000 ML 30 ML IV CONT (08:15)
[2023-01-11] MEDS: KETOROLAC 15 MG/ML VIAL (*BKC) IV PUSH (08:18)
--- NOTE | 2023-01-11 08:42 | WPDANESEPPF ---
Anes - Initial Pre Proc Eval Procedure: Operation Date: 01/11/23 09:30 Proposed Procedures p Laparoscopic Bilateral Salpingectomy - Dyan Fuller MD Date/Time: 01/11/23 08:42 Surgeon: Dyan Fuller MD Pre Op Diagnosis: Desires Sterilization Patient Data Age: 27 Gender: F Height: 1.68 m Weight: 78.1 kg Last Vital Signs Temp 36.1 C L 01/11/23 07:56 Pulse 63 01/11/23 07:56 Resp 20 01/11/23 07:56 BP 105/70 01/11/23 07:56 Pulse Ox 99 01/11/23 07:56 O2 Del Method Room Air 01/11/23 07:56 Allergies Allergy/AdvReac Type Severity Reaction Status Date / Time amoxicillin Allergy Severe Rash Verified 01/11/23 07:58 Sulfa (Sulfonamide Allergy Severe Rash Verified 01/11/23 07:58 Antibiotics) chlorphentermine Allergy Unknown Unknown Verified 01/11/23 07:58 dextromethorphan Allergy Unknown Unknown Verified 01/11/23 07:58 Penicillins Allergy Unknown RASH Verified 01/11/23 07:58 phenylephrine Allergy Unknown Unknown Verified 01/11/23 07:58 pseudoephedrine Allergy Unknown Unknown Verified 01/11/23 07:58 Home Medications Medication Instructions Recorded Confirmed Type [id number] 3-fat com #1 27 1 cap PO DAILY 10/13/22 01/04/23 History mg-1 mg-300 mg capsule Patient hx anesthesia problems: none Family hx anesthesia problems: none Results Review: All pre-operative results and documents have been reviewed as part of the pre-operative evaluation. [facility] Past Medical History Medical History BMI 28.0-28.9,adult Depression (normal spontaneous vaginal delivery) X4 PCOS (polycystic ovarian syndrome) Surgical History Surgical History History of D&C 2015 spontaneous History of tonsillectomy Family History Family History Father Hypertension Diabetes mellitus Emphysema lung Mother Hypertension Heart disease Fibromyalgia Sibling No problems noted. Sibling , cerebral palsy-28 years old. No problems noted. Other Family history of coronary artery disease Social History Social History Smoking status: Never smoker Second hand tobacco smoke exposure: No Alcohol intake: current Alcohol use details: socially Substance use: never Substance use type: does not use Lack of Transportation: No Lack of Food: Never True Current Housing: I Have Housing Concerned About Future Housing: No Difficulty Paying Gas/Electric Bills: No Difficulty Paying for Meds: No Currently Unemployed: No Education: Decline to Answer Difficulty w/ Childcare or Family Care: No Living arrangements: with family Occupation/Education: occupation 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 Gender identity (if verbalized by the patient): Female Spiritual care concerns: No Anes - Eval Final PreProcedure Day of Procedure 01/11/23 08:42 Patient weight: overweight Heart: regular rate and rhythm Lungs: clear to auscultation Airway: Mallampati scale class 1 Neurological: alert and oriented Last oral intake: >/= 8 hours ASA classification: II Emergent: no Anesthetic plan: proceed Anesthesia type and monitoring: general ETT and standard monitoring Results Review: All pre-operative results and documents have been reviewed as part of the pre-operative evaluation. Informed Consent: The patient's anesthetic plan and its attendant risks and benefits were discussed with the patient/family/POA. Questions were solicited and answers provided to the satisfaction of the patient/family/POA.
[2023-01-11] MEDS: SCOPOLAMINE 1.5 MG PATCH TRANSDERM (08:47)
--- NOTE | 2023-01-11 10:08 | P.OP_ITS ---
Procedure Note - Detailed Date of Procedure 01/11/23 Pre-op Diagnosis Desires Sterilization Post-op Diagnosis Same Procedure Performed Laparoscopic bilateral salpingectomy Surgeon Dyan Fuller MD Anesthesia General Findings Normal-appearing tubes, ovaries, and uterus. Description of Procedure The patient was taken to the operating room and placed under anesthesia in the dorsal lithotomy position. She was prepped and draped in the usual sterile fashion. Bladder was drained with a red rubber catheter of 350cc of clear urine. The bivalve speculum was placed in the vagina and the cervix grasped on the anterior lip with a tenaculum. The acorn manipulator was placed and the speculum removed. Attention was then turned to the abdomen where a vertical skin incision was made at the base of the umbilicus. The abdomen is tented and the Veress needle placed. Opening patient pressure was 3mmHg. Pneumoperitoneum was obtained to a patient pressure of 15mmHg. The Veress needle was then removed and the 5mm Optiview is placed while tenting the abdomen. Intra- abdominal placement is confirmed with the laparoscope. The patient was placed in Trendelenburg and 2 additional 5mm ports are placed under direct visualization 1 in the left and 1 in the right lower quadrant. The atraumatic grasper was used to grasp the right tube at its fimbriated end. The LigaSure is used to cauterize and cut the mesosalpinx until the cornua was reached. The tube was then crossclamped cauterized and cut with the LigaSure. The identical procedure was performed on the left side. Both tubes are removed through the lower port without difficulty. The lower ports are removed with good hemostasis noted the pneumoperitoneum was reduced and the umbilical port is removed. The skin incisions were closed using 4-0 nylon in an interrupted fashion. Vaginal instruments are removed. Sponge, needle, and instrument counts are correct per the OR staff. Patient is awakened from anesthesia and taken to recovery in the stable condition. Estimated Blood Loss 5 Drains No Packing No Pathology Yes (Bilateral tubes) Complications No immediate complications Condition Stable Disposition PACU
[2023-01-11] MEDS: fentaNYL CITRATE INJ (*CRX) 100 MCG/2 ML VIAL 25 MCG IV PUSH ×4 (10:35→11:04)
[2023-01-11] MEDS: ONDANSETRON INJ 4 MG/2 ML VIAL IV PUSH (10:56)
[2023-01-11] MEDS: oxyCODONE HCL (*CRX) 5 MG TAB IR PO (12:01)
== END 2023-01-11 13:13 | disposition home or self-care (01) ==
PROVIDERS: PCP Family Medicine; Visit Provider Obstetrics & Gynecology Gynecology
PROC: (CPT 49320; principal; 2023-01-11 09:30)
DX: Z30.2 Encounter for sterilization (principal)
CPT/HCPCS: 58661; 88302; A9270; J1100; J1170; J1885; J2250; J2405; J2704; J3010; J7120

== ENCOUNTER 2023-04-22 08:56 | Emergency (ER) | payer OTHER, SELFPAY ==
--- NOTE | 2023-04-22 09:04 | ED.URI ---
HPI - URI/Sore Throat General Chief Complaint: Upper Respiratory Infection Stated Complaint: sorethroat Time Seen by Provider: 04/22/23 09:20 Source: patient, RN notes reviewed and old records reviewed Mode of arrival: ambulatory Limitations: no limitations History of Present Illness HPI Narrative: 37-year-old female presents to the [facility] with complaints of a sore throat that started on Wednesday. Yesterday started with body aches, reports 102 fever and headaches. Has taken DayQuil Related Data Home Medications Medication Instructions Recorded Confirmed No Home Medications 04/22/23 04/22/23 Allergies Allergy/AdvReac Type Severity Reaction Status Date / Time amoxicillin Allergy Severe Rash Verified 04/22/23 09:07 Sulfa (Sulfonamide Allergy Severe Rash Verified 04/22/23 09:07 Antibiotics) chlorphentermine Allergy Unknown Unknown Verified 04/22/23 09:07 dextromethorphan Allergy Unknown Unknown Verified 04/22/23 09:07 Penicillins Allergy Unknown RASH Verified 04/22/23 09:07 phenylephrine Allergy Unknown Unknown Verified 04/22/23 09:07 pseudoephedrine Allergy Unknown Unknown Verified 04/22/23 09:07 Review of Systems Review of Systems: All systems reviewed & are unremarkable except as noted in HPI and below Constitutional: Constitutional: Reports as per HPI, Reports body ache(s), Reports chills, Reports fatigue, Reports fever(s) and Reports headache(s) Eyes: Eyes: Reports no additional eye complaints ENT: Reports as per HPI Cardiovascular: Cardiovascular: Reports no additional cardiovascular complaints, Denies chest pain and Denies dyspnea Respiratory: Respiratory: Reports no additional respiratory complaints, Denies chest congestion, Denies cough and Denies dyspnea Gastrointestinal: Gastrointestinal: Reports no additional gastrointestinal complaints, Denies abdominal pain, Denies nausea and Denies vomiting Musculoskeletal: Musculoskeletal: Reports no additional musculoskeletal complaints Integumentary/Breasts: Skin/Breast: Reports system reviewed and no additional complaints, except as docu Neurologic: Reports system reviewed and no additional complaints, except as documented Psychiatric: Psychiatric: Reports no additional psychiatric complaints Allergic/Immunologic: Allergic/Immunologic: Reports no additional allergic/immunologic complaints PMFSH Past Medical History Medical History BMI 28.0-28.9,adult Depression (normal spontaneous vaginal delivery) X4 PCOS (polycystic ovarian syndrome) Surgical History Surgical History History of D&C 2015 spontaneous History of tonsillectomy Family History Family History Father Hypertension Diabetes mellitus Emphysema lung Mother Hypertension Heart disease Fibromyalgia Sibling No problems noted. Sibling , cerebral palsy-28 years old. No problems noted. Other Family history of coronary artery disease Social History Social History Smoking status: Never smoker Second hand tobacco smoke exposure: No Alcohol intake: current Alcohol use details: socially Substance use: never Substance use type: does not use Lack of Transportation: No Lack of Food: Never True Current Housing: I Have Housing Concerned About Future Housing: No Difficulty Paying Gas/Electric Bills: No Difficulty Paying for Meds: No Currently Unemployed: No Education: Decline to Answer Difficulty w/ Childcare or Family Care: No Living arrangements: with family Occupation/Education: occupation 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 Gender identity (if verbalized by the patient): Female Spiritual care concerns: No Comments At the time of my signature, I re
[2023-04-22 09:08] VITALS: BP 98/72; PULSE 86; RESP 16; TEMP 36.6; O2SAT 99
== END 2023-04-22 09:46 | disposition home or self-care (01) ==
PROVIDERS: Emergency Provider Nurse Practitioner; PCP Family Medicine
DX: U07.1 COVID-19 (principal)
CPT/HCPCS: 87081; 87426; 87804; 87880; 99213; G0463

== ENCOUNTER 2023-12-07 09:36 | Emergency (ER) | payer OTHER, SELFPAY ==
--- NOTE | 2023-12-07 09:40 | ED.URI ---
HPI - URI/Sore Throat General Chief Complaint: Upper Respiratory Infection Stated Complaint: Cold Symptoms Source: patient and RN notes reviewed Mode of arrival: ambulatory Limitations: no limitations History of Present Illness HPI Narrative: Patient is a 28-year-old female who presents to the [facility] with complaints of cold symptoms since Wednesday. Patient endorses nasal congestion and frequent nonproductive cough. States that she has been experiencing body aches, sweats, chills. She denies sore throat. Denies chest pain or shortness of breath. Unsure of any known sick contacts. Related Data Allergies Allergy/AdvReac Type Severity Reaction Status Date / Time amoxicillin Allergy Severe Rash Verified 12/07/23 09:59 Sulfa (Sulfonamide Allergy Severe Rash Verified 12/07/23 09:59 Antibiotics) chlorphentermine Allergy Unknown Unknown Verified 12/07/23 09:59 dextromethorphan Allergy Unknown Unknown Verified 12/07/23 09:59 Penicillins Allergy Unknown RASH Verified 12/07/23 09:59 phenylephrine Allergy Unknown Unknown Verified 12/07/23 09:59 pseudoephedrine Allergy Unknown Unknown Verified 12/07/23 09:59 Review of Systems Review of Systems: CONSTITUTIONAL: Reports fever, chills, or sweats. EYES: Denies visual changes, redness, or discharge. ENT: Denies otalgia and sore throat. Reports nasal congestion and drainage. CARDIOVASCULAR: Denies chest pain, palpitations, or edema. RESPIRATORY: Reports cough but denies dyspnea. GASTROINTESTINAL: Denies abdominal pain, nausea, vomiting, or diarrhea. GENITOURINARY: Denies dysuria or hematuria. SKIN: Denies rash or itching. MUSCULOSKELETAL: Denies back pain, joint pain, but reports myalgia. NEUROLOGIC: Denies headache, numbness, or weakness. Pertinent positives per HPI. PMF Past Medical History Medical History Abnormal EKG BMI 25.0-25.9,adult Depression Encounter for sterilization (normal spontaneous vaginal delivery) X4 PCOS (polycystic ovarian syndrome) Post-op pain Pruritus of in third trimester Suspected Cholestasis but bile acids pending. No evidence of preeclampsia. Rh negative status during Surgical History Surgical History H/O tubal ligation History of D&C 2014 spontaneous History of tonsillectomy Family History Family History Father Hypertension Diabetes mellitus Emphysema lung Mother Hypertension Heart disease Fibromyalgia Sibling No problems noted. Sibling , cerebral palsy-28 years old. No problems noted. Other Family history of coronary artery disease Social History Social History Smoking status: Never smoker Second hand tobacco smoke exposure: No Alcohol intake: current Alcohol use details: socially Substance use: never Substance use type: does not use Do You Feel Safe in your Home?: Yes Lack of Transportation: No Lack of Food: Never True Current Housing: I Have Housing Concerned About Future Housing: No Difficulty Paying Gas/Electric Bills: No Difficulty Paying for Meds: No Currently Unemployed: No Education: High School Diploma/GED Difficulty w/ Childcare or Family Care: No Living arrangements: with family Occupation/Education: occupation 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 Gender identity (if verbalized by the patient): Female Spiritual care concerns: No Comments At the time of my signature, I reviewed and agree with the nursing past medical, surgical, social, and family history. There is no relevant family history pertinent to the patient complaint. Exam Narrative: GENERAL: This is a well-nourished, well-developed patient, in no apparent distress. HEAD: normo
[2023-12-07 09:47] VITALS: BP 114/77; PULSE 75; RESP 16; TEMP 36.8; O2SAT 97
[2023-12-07 10:08] LABS: EDSTREPNEGPOS1 Negative (Negative)
[2023-12-07 10:12] LABS: EDCOVIDSCREEN Negative (Negative)
== END 2023-12-07 10:20 | disposition home or self-care (01) ==
PROVIDERS: Emergency Provider Nurse Practitioner; PCP Family Medicine
DX: J20.8 Acute bronchitis due to other specified organisms (principal); Z20.822 Contact with and (suspected) exposure to COVID-19
CPT/HCPCS: 87081; 87426; 87880; 99213; G0463

== ENCOUNTER 2024-06-27 08:24 | Outpatient (CLI) | payer BC, MEDICAID, SELFPAY ==
--- OUTSIDE RECORDS SUMMARY | 2024-06-27 08:37 | XMS_ITS | Referral Summary ---
Author Organization [facility] Address [address] [place] [address] Care Team Providers Care Sharepoint Solutions Architect Name Role Phone Romina Marx NP Primary Care Provider Allergies Active Allergy Reactions Criticality Noted Date Comments Amoxicillin Rash Medium 10/16/2010 Sulfa (Sulfonamide Antibiotics) Rash Medium 06/2010 Medications benzonatate (TESSALON) 100 mg capsule TAKE 1 CAPSULE BY MOUTH TWICE DAILY NEEDED FOR COUGH 4 Active predniSONE (DELTASONE) 50 mg tablet TAKE 1 TABLET BY MOUTH DAILY FOR 5 DAYS 4 Active albuterol HFA (PROVENTIL HFA,VENTOLIN HFA,PROAIR HFA) 90 mcg/actuation inhalerIndicati ons:Bronchitis Inhale 2 puffs every 6 (six) hours as needed for wheezing or shortness of breath 1 each 4 Active azithromycin (ZITHROMAX) 250 mg tabletIndicatio ns:Bronchitis Take 2 tablets the first day, then 1 tablet daily for 4 days. 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 Gender Identity Not on file Sexual Orientation Not on file Last Filed Vital Signs Vital Sign Reading Time Taken Comments Blood Pressure 113/76 12/10/2023 6:25 PM CDT Pulse 70 12/10/2023 6:25 PM CDT Temperature 37 C (98.6 F) 12/10/2023 6:25 PM CDT Respiratory Rate 20 12/10/2023 6:25 PM CDT Oxygen Saturation 99% 12/10/2023 6:25 PM CDT Inhaled Oxygen Concentration - - Weight 77.1 kg (170 lb) 12/10/2023 6:25 PM CDT Height 167.6 cm (5' 6 ) 12/10/2023 6:25 PM CDT Body Mass Index 27.44 12/10/2023 6:25 PM CDT Plan of Treatment Not on file Insurance [facility] Care Teams Sharepoint Solutions Architect Relationship Specialty Start Date End Date Romina Marx NP [address] [place] [address] PCP - General Nurse Practitioner 09/15/23
--- OUTSIDE RECORDS SUMMARY | 2024-06-27 08:37 | XMS_ITS | Clinical Summary ---
Author Organization [facility] Address [address] [place] [address] Care Team Providers Care Production Lead Name Role Phone Romina Marx NP Primary [...] Noted Date Diagnosed Date Exertional dyspnea 09/15/2023 Surgical History Surgery Date Site/Laterality Comments TONSILLECTOMY TUBAL LIGATION Medical History Medical History Date Comments Preeclampsia Hx of tonsillectomy Tubal ligation status PCOS (polycystic ovarian syndrome) Family History Medical History Relation Name Comments Atrial fibrillation Mother Relation Name Status Comments Father Alive Mother Alive Social History Tobacco Use Types Packs/Day Years Used Date Smoking Tobacco: Never Smokeless Tobacco: Never Tobacco Cessation:Counseling Given: Not Answered Personal Safety Answer Date Recorded Getting School Help Needed Not on file 05/15 Comments Unknown Sex and Gender Information Value Date Recorded Sex Assigned at Not on file 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 Gender Identity Not on file Sexual Orientation Not on file Obstetrics History Last Filed Vital Signs Vital Sign Reading [...] 12/10/2023 6:25 PM CDT Plan of Treatment Health Maintenance Due Date Last Done Comments Cervical Cancer Screening 1993 Depression Screening 1993 Hepatitis C Screening 1993 Varicella Vaccines (1 of 2 - 13+ 2-dose series) 2006 Hepatitis B Screening 08/08/2011 Regular Well Visit/Exam 18-64 08/08/2011 Covid-19 Vaccine (3 - 2023-2 5 season) 2023 02/09/2022, 03/11/2021 Influenza Vaccine (#1) 2023 DTaP/Tdap/Td Vaccine (2 - Td or Tdap) 02/24/2031 02/24/2021 HPV Vaccines Aged Out No longer eligi ble based on patient's age to complete this topic Pneumococcal vaccine <65 Aged Out No longer eligible based on patient's age to complete this topic Insurance [facility] Care Teams Production Lead Relationship Specialty Start Date End Date Romina Marx NP [address] [place] [address] PCP - General Nurse Practitioner 09/15/23
--- OUTSIDE RECORDS SUMMARY | 2024-06-27 08:37 | XMS_ITS | Clinical Summary ---
Author Organization [facility] [employer] Address [address] 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 This disclosure is being madepursuant to the Care Everywhere program and may not contain all information available regarding this patient. Last updated [facility] [employer] Allergies Active Allergy Reactions Criticality Noted Date Comments Amoxicillin Rash Medium 10/16/2010 Sulfa Drugs Rash Medium 10/16/2010 Medications * Be aware that medications may not be up to date on this document. Alwaysverify current medications with the patient. propranolol (INDERAL) 80 MG tablet Take 80 mg by mouth 2 times daily. Active FLUoxetine (PROZAC) 20 MG capsule Take 40 mg by mouth once daily. Active pantoprazole EC (PROTONIX) 40 MG tablet Take 40 mg by mouth once daily. Active niacinamide 500 MG TABS tablet Take 500 mg by mouth at bedtime. Active hydrOXYzine pamoate (VISTARIL) 25 MG capsule Take 50 mg by mouth at bedtime. Active fexofenadine (DENISA) 180 MG tablet Take 180 mg by mouth once daily. Active calcium-vitamin D (CALTRATE PLUS D) 600-200 MG-UNIT tablet Take 1 Tab by mouth 2 times daily. Active MedroxyPROGESTER one Acetate (DEPO-PROVERA IM) Inject into muscle. Active ziprasidone (GEODON) 40 MG capsule Take 40 mg by mouth at bedtime. Active aspirin 81 MG tablet Take 81 mg by mouth once daily. 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 - Lab [address] [place] [id number] Discharge Disposition: Home or Self Care 04/24/2024 Orders Only [facility] - Genetics [address] [place] [id number] Blaze Holland MD Family history of congenital or genetic condition from Last 3 Months Social History Tobacco Use Types Packs/Day Years Used Date Smoking Tobacco: Never Assessed Comments Unknown Sex and Gender Information Value Date Recorded Sex Assigned at Not on file Legal Sex Female 8:21 AM BASE CLOTH INSPECTOR Gender Identity Not on file Sexual Orientation Not on file Last Filed Vital Signs Vital Sign Reading Time Taken Comments Blood Pressure 94/60 10/29/2010 2:11 PM CDT Pulse 80 10/17/2010 12:52 AM CDT Temperature 37.1 C (98.8 F) 10/17/2010 12:52 AM CDT Respiratory Rate 18 10/17/2010 12:52 AM CDT Oxygen Saturation 100% 10/16/2010 10:43 PM CDT ra Inhaled Oxygen Concentration - - Weight 92 kg (202 lb 13.2 oz) 10/29/2010 2:14 PM CDT Height 169 cm (5' 6.54 ) 10/29/2010 2:14 PM CDT Body Mass Index 32.21 10/29/2010 2:14 PM CDT Plan of Treatment Health Maintenance Due Date Last Done Comments PAP SMEAR 1993 HIV SCREENING 2008 HEPATITIS C SCREENING 08/03/2011 DTAP/TDAP/TD VACCINES (1 - Tdap) 2012 HEPATITIS B VACCINE (1 of 3 - 19+ 3-dose series) 2012 COVID-19 VACCINE ( - 2023-2 5 season) 2023 DEPRESSION SCREENING 03/15/2024 INFLUENZA VACCINE (Season Ended) 2024 ZOSTER VACCINE (1 of 2) 08/08/2043 HIB VACCINE Aged Out No longer eligi ble based on patient's age to complete this topic HPV VACCINE Aged Out No longer eligi ble based on patient's age to complete this topic MENINGOCOCCAL (Group B) VACC INE SHARED DECISION-MAKING Aged Out No longer eligibl e based on patient's age to complete this topic MENINGOCOCCAL GROUPS A/C/Y/W VACCINE Aged Out No longer eligible b ased on patient's age to complete this topic PNEUMOCOCCAL VACCINE Aged Out No long er eligible based on patient's age to complete this topic Procedures Procedure Name Priority Date/Time Associated Diagnosis Comments LAB MISC TEST Routine 04/28/2024 10:26 AM BASE CLOTH INSPECTOR Family history of congenital or genetic condition from Last 3 Months Results * LAB MISC TEST (04/28/2024 10:26 AM BASE CLOTH INSPECTOR) Test Result See Scanned Report 05/05/2024 3:47 PM BASE CLOTH INSPECTOR [facility] OTHER LAB Blood BLOOD SPECIMEN / Unknown Lab Venipuncture / Unknown 04/28/2024 10:26 AM BASE CLOTH INSPECTOR 04/28/2024 10:42 AM BASE CLOTH INSPECTOR us Blaze Holland MD LAB SEND OUT Final Resu lt [facility] OTHER LAB from Last 3 Months Insurance MEDICAID - OUT OF STATE [facility] * Guarantor: JOLENE BOWERS Account Type Relation to Patient Date of Phone Billing Address Personal/Family Spouse Care Teams Bundler [employer] Relationship Specialty Start Date End Date Estuardo Bills MD [address] [place] [address] PCP - General 04/22/18 Estuardo Bills [place] [address] [place] [address] 04/22/18
[2024-06-27 09:11] LABS: Basophils Absolute Auto 0.1 K/mm3 (0.0-0.1); Basophils Percent Auto 0.7 % (0.2-1.2); Eosinophils Absolute Auto 0.5 K/mm3 (0-0.3); Eosinophils Percent Auto 6.3 % (0-4.4); Hemoglobin 13.5 g/dL (12.0-15.0); Immature Granulocyte Absolute 0.01 K/mm3 (0.00-0.031); Immature Granulocyte Percent A 0.1 % (0-0.5); Lymphocytes Absolute Auto 2.63 K/mm3 (0.9-3.2); Mean Corpuscular HGB Conc 32.1 g/dl (32-36); Mean Corpuscular Hemoglobin 29.2 pg (26-34); Mean Corpuscular Volume 90.7 fl (80-100); Mean Platelet Volume 10.3 fl (7.4-10.4); Monocytes Absolute Auto 0.4 K/mm3 (0.1-0.6); Neutrophils Absolute Auto 3.5 K/mm3 (1.3-6.7); Neutrophils Percent Auto 49.9 % (45.5-73.1); Platelet Count Result 263 k/mm3 (150-375); Red Blood Count 4.63 M/mm3 (4.2-5.4); Red Cell Distribution Width 13.3 % (11.5-14.5); White Blood Count 7.1 K/mm3 (4.5-10.0)
[2024-06-27 09:22] LABS: Alanine Aminotransferase 16 U/L (6-35); Albumin Level 4.3 g/dL (3.5-5.1); Alkaline Phosphatase 43 U/L (38-126); Anion Gap 10 mmol/L (4-12); Aspartate Amino Transferase 17 U/L (14-36); Bilirubin,Total 0.2 mg/dL (0.2-1.3); Blood Urea Nitrogen 17 mg/dL (7-17); Calcium 9.1 mg/dL (8.4-10.2); Carbon Dioxide 24 mmol/L (22-30); Chloride 108 mmol/L (98-107); Cholesterol 191 mg/dL (0-200); Estimated Glomerular Filt Rate > 60; Glucose 92 mg/dL (65-110); HDL Direct 59 mg/dL; Potassium 4.1 mmol/L (3.4-5.0); Sodium 142 mmol/L (137-145); Triglycerides 83 mg/dL (<150)
[2024-06-27 09:34] LABS: LDL Cholesterol Direct 96 mg/dL
[2024-06-27 09:50] LABS: Creatinine Urine 293.2 mg/dL
[2024-06-27 09:56] LABS: MALB Creatinine Ratio 2.5 mg/g (0-30); Microalbumin Urine Random 7.4 mg/L (0-16.7)
== END 2024-06-27 08:25 | disposition home or self-care (01) ==
LOC: ANHLAB 08:27
PROVIDERS: PCP Family Medicine; Visit Provider Nurse Practitioner Adult Health
DX: Q87.81 Alport syndrome (principal); Z13.29 Encounter for screening for other suspected endocrine disorder; Z13.220 Encounter for screening for lipoid disorders
CPT/HCPCS: 36415; 80053; 80061; 82043; 84443; 85025